=== PATIENT | female | born 1960 | race American Indian/Alaskan Native ===

== ENCOUNTER 2018-02-12 10:05 | Emergency (ER) | payer MEDICARE ==
[2018-02-12 12:16] LABS: Hematocrit 31.9 % (30.3-42.9); Hemoglobin 10.5 gm/dl (10.1-14.3); Mean Corpuscular HGB Conc 33 % (30-34); Mean Corpuscular Hemoglobin 31 pg (28-32); Mean Corpuscular Volume 93 fl (79-97); Platelet Count 153 K/mm3 (140-440); Red Blood Count 3.43 M/mm3 (3.65-5.03)
[2018-02-12 12:28] LABS: Amphetamine Screen,Urine PRESUMPTIVE NEGATIVE; Benzodiazepines Screen,Urine PRESUMPTIVE NEGATIVE; Cannabinoid Screen,Urine PRESUMPTIVE NEGATIVE; Cocaine Screen,Urine PRESUMPTIVE NEGATIVE; Methadone Screen,Urine PRESUMPTIVE NEGATIVE; Opiate Screen,Urine PRESUMPTIVE NEGATIVE
[2018-02-12 12:29] LABS: Bilirubin,Urine NEG (Negative); Blood,Urine NEG (Negative); Color,Urine Amber (Yellow); Hyaline Casts,Urine 2 /LPF; Mucus,Urine FEW /HPF
[2018-02-12 12:36] LABS: Calcium 9.4 mg/dL (8.4-10.2)
--- NOTE | 2018-02-12 12:44 | Emergency Department Report ---
ED Psych HPI - General Chief Complaint: Psych Stated Complaint: MENTAL EVAL Time Seen by Provider: 02/12/18 12:24 Source: patient Mode of arrival: Ambulatory - History of Present Illness Initial Comments: 57-year-old female with history of bipolar, schizophrenia and dementia presents to the ED due to aggressive behavior at home. This was reported by the patient' s mother was not present at bedside at this time. Patient denies aggression, also denies suicidal and homicidal ideation. Reports no hallucinations. MD Complaint: other (aggressive behavior) -: unknown Quality: intermittent Improves With: none Worsens With: none Treatments Prior to Arrival: none - Related Data Previous Rx's Medication Instructions Recorded Last Taken Type levoFLOXacin [Levaquin TAB] 500 mg PO QDAY #7 tablet 02/12/18 Unknown Rx metFORMIN [Glucophage] 500 mg PO BID #60 tablet 02/12/18 Unknown Rx Allergies Allergy/AdvReac Type Severity Reaction Status Date / Time morphine Allergy Rash Verified 01/21/18 11:25 ED Review of Systems ROS: Stated complaint: MENTAL EVAL Other details as noted in HPI Comment: All other systems reviewed and negative Psychiatric: denies: auditory hallucinations, homicidal thoughts, suicidal thoughts ED Past Medical Hx - Past Medical History Hx Psychiatric Treatment: Yes (BIPOLAR, DEMENTIA AND SCHIZOPHRENIA) - Surgical History Past Surgical History?: No - Social History Smoking Status: Never Smoker Substance Use Type: None - Medications Home Medications: Home Medications Medication Instructions Recorded Confirmed Last Taken Type levoFLOXacin [Levaquin TAB] 500 mg PO QDAY #7 tablet 02/12/18 Unknown Rx metFORMIN [Glucophage] 500 mg PO BID #60 tablet 02/12/18 Unknown Rx ED Physical Exam - General Limitations: Other General appearance: alert, in no apparent distress - Head Head exam: Present: atraumatic, normocephalic - Eye Eye exam: Present: normal appearance - ENT ENT exam: Present: mucous membranes moist - Neck Neck exam: Present: normal inspection - Respiratory Respiratory exam: Present: normal lung sounds bilaterally. Absent: respiratory distress - Cardiovascular Cardiovascular Exam: Present: normal rhythm, tachycardia - GI/Abdominal GI/Abdominal exam: Present: soft. Absent: tenderness - Extremities Exam Extremities exam: Present: normal inspection - Neurological Exam Neurological exam: Present: alert, oriented X3 - Psychiatric Psychiatric exam: Present: normal affect, normal mood - Skin Skin exam: Present: warm, dry, intact, normal color ED Course Vital Signs 02/12/18 02/12/18 02/12/18 11:26 13:41 17:15 Temperature 99.5 F 99.8 F H -99.8 F L Pulse Rate 125 H 107 H 107 H Respiratory 20 16 16 Rate Blood Pressure 119/60 Blood Pressure 111/62 111/62 [Right] O2 Sat by Pulse 95 99 99 Oximetry ED Medical Decision Making - Lab Data Result diagrams: 02/12/18 11:57 02/12/18 11:57 - Radiology Data Radiology results: pending - Medical Decision Making 57 yo female with history of dementia, bipolar, schizophrenia presents to the ED reports of aggression against family. Patient denies this and also denies hallucinations, SI, or HI. Patient tachycardic upon arrival and has white count of 16. She reports no symptoms of infection. UA negative. Chest x-ray ordered, patient stable, signed out to Dr. Quinones. - Differential Diagnosis dementia, schizophrenia, UTI, PNA Critical care attestation.: If time is entered above; I have spent that time in minutes in the direct care of this critically ill patient, excluding procedure time. ED Disposition Clinical Impression: Schizophrenia, Dementia, Pneumonia, Hyperglycemia Disposition: DC-01 TO HOME OR SELFCARE Is pt being admited?: No Condition: Stable Instructions: Schizophrenia (ED), Bacterial Pneumonia (ED) Prescriptions: levoFLOXacin [Levaquin TAB] 500 mg PO QDAY #7 tablet metFORMIN [Glucophage] 500 mg PO BID #60 tablet Referrals: PRIMARY CARE, [Primary Care Provider] - 3-5 Days
[2018-02-12 12:52] LABS: Basophils % (Manual) 0 % (0.0-1.8); Eosinophils % (Manual) 0 % (0.0-4.3); Total Cells Counted 100
[2018-02-12 12:53] LABS: Platelet Estimate Consistent w Auto
[2018-02-12 12:54] LABS: Anisocytosis 1+
[2018-02-12] MEDS ORDERED: HumuLIN R SUB-Q ONE (15:24)
[2018-02-12 15:58] VITALS: BP 111/62
[2018-02-12] MEDS ORDERED: ROCEPHIN IM ONE (19:56)
[2018-02-12] MEDS ORDERED: XYLOCAINE 1% MPF 5 mL INFILTRATI ONE (19:56)
--- NOTE | 2018-02-12 20:01 | Emergency Department Report ---
ED General Adult HPI - General Chief complaint: Psych Stated complaint: MENTAL EVAL Time Seen by Provider: 02/12/18 12:24 Source: patient Mode of arrival: Ambulatory Limitations: Other - History of Present Illness Initial comments: Patient is a 57-year-old female with history of schizophrenia, bipolar, DM and dementia. Patient presented to the ER accompanied by her mother stating that the patient is being very aggressive recently and one had to be evaluated. Patient is calm and is not aggressive in the ER. She denied any suicidal or homicidal ideation. No auditory or visual hallucination. I reviewed patient chart and showed that patient is with low-grade fever and slightly tachycardic when she came in. Patient chest x-ray showed a left lobe pneumonia with a white count of 16,000. I give patient Rocephin IM. Patient is being waiting for assessment by [facility]. Severity scale (0 -10): 0 - Related Data Allergies Allergy/AdvReac Type Severity Reaction Status Date / Time morphine Allergy Rash Verified 01/21/18 11:25 ED Review of Systems ROS: Stated complaint: MENTAL EVAL Other details as noted in HPI Comment: All other systems reviewed and negative Constitutional: denies: chills Respiratory: denies: cough, orthopnea, shortness of breath, SOB with exertion, SOB at rest Cardiovascular: palpitations. denies: chest pain Gastrointestinal: denies: abdominal pain, nausea, vomiting, diarrhea, constipation, hematemesis, hematochezia Neurological: denies: headache, weakness Psychiatric: denies: auditory hallucinations, homicidal thoughts, suicidal thoughts ED Past Medical Hx - Past Medical History Hx Psychiatric Treatment: Yes (BIPOLAR, DEMENTIA AND SCHIZOPHRENIA) - Surgical History Past Surgical History?: No - Social History Smoking Status: Never Smoker Substance Use Type: None ED Physical Exam - General Limitations: Other General appearance: alert, in no apparent distress - Head Head exam: Present: atraumatic, normocephalic, normal inspection - Eye Eye exam: Present: normal appearance - ENT ENT exam: Present: normal exam, normal orophraynx, mucous membranes moist - Neck Neck exam: Present: normal inspection, full ROM. Absent: tenderness, meningismus, lymphadenopathy, thyromegaly - Respiratory Respiratory exam: Present: normal lung sounds bilaterally. Absent: respiratory distress, wheezes, rales, rhonchi, stridor, accessory muscle use, decreased breath sounds, prolonged expiratory - Cardiovascular Cardiovascular Exam: Present: regular rate, normal rhythm, normal heart sounds - GI/Abdominal GI/Abdominal exam: Present: soft, normal bowel sounds. Absent: distended, tenderness, guarding, rebound, rigid, organomegaly, mass, bruit, pulsatile mass , hernia - Extremities Exam Extremities exam: Present: normal inspection, full ROM, normal capillary refill. Absent: pedal edema, calf tenderness - Back Exam Back exam: Present: normal inspection, full ROM - Neurological Exam Neurological exam: Present: alert, oriented X3, CN II-XII intact, normal gait, reflexes normal - Psychiatric Psychiatric exam: Absent: depressed, agitated, manic, homicidal ideation, suicidal ideation - Skin Skin exam: Present: warm, intact, normal color ED Course Vital Signs 02/12/18 02/12/18 02/12/18 11:26 13:41 17:15 Temperature 99.5 F 99.8 F H -99.8 F L Pulse Rate 125 H 107 H 107 H Respiratory 20 16 16 Rate Blood Pressure 119/60 Blood Pressure 111/62 111/62 [Right] O2 Sat by Pulse 95 99 99 Oximetry ED Medical Decision Making - Lab Data Result diagrams: 02/12/18 11:57 02/12/18 11:57 - Radiology Data Radiology results: report reviewed Chest x-ray showed left midlung opacity compatible with his focal pneumonia. Mass cannot be excluded. Patient is to follow-up with her primary care physician for resolution of the opacity. - Medical Decision Making Vladislav is a 57-year-old female with history of schizophrenia, bipolar, DM and dementia. Patient presented to the ER accompanied by her mother stating that the patient is being very aggressive recently and one had to be evaluated. Patient is calm and is not aggressive in the ER. She denied any suicidal or homicidal ideation. No auditory or visual hallucination. I reviewed patient chart and showed that patient is with low-grade fever and slightly tachycardic when she came in. Patient chest x-ray showed a left lobe pneumonia with a white count of 16,000. I give patient Rocephin IM. Patient is being waiting for assessment by mental health. Patient assessed by mental health and as stated patient can be referred to outpatient. Patient clinically looks okay with no acute distress patient is walking around with an oxygen saturation of 100%. I believe patient can be treated as an outpatient for pneumonia and to follow-up with her primary care physician in the next 2-3 days. I also informed the family about the x-ray finding and the need for follow-up primary care physician for another x-ray for resolution of the opacity and to make sure that the patient does not have lung cancer. Family agreed on the plan. Critical care attestation.: If time is entered above; I have spent that time in minutes in the direct care of this critically ill patient, excluding procedure time. ED Disposition Clinical Impression: Schizophrenia, Dementia, Pneumonia, Hyperglycemia Disposition: DC-01 TO HOME OR SELFCARE Is pt being admited?: No Condition: Stable Instructions: Bacterial Pneumonia (ED), Schizophrenia (ED) Referrals: PRIMARY CARE, [Primary Care Provider] - 3-5 Days
--- NOTE | 2018-02-13 10:27 | XRay Report ---
FINAL REPORT PROCEDURE: XRAY CHEST 2 VIEWS TECHNIQUE: PA and lateral chest radiographs were obtained. CPT 46928 HISTORY: HIGH WBC COMPARISON: No prior studies are available for comparison. FINDINGS: Heart: Normal. Mediastinum/Vessels: Normal. Lungs/Pleural space: There is focal somewhat rounded airspace opacity in the left midlung, measuring approximately 6 centimeters, compatible with a focal pneumonia. Cannot exclude underlying mass. No effusion or pneumothorax. Bony thorax: No acute osseous abnormality. Other: IMPRESSION: There is focal somewhat rounded airspace opacity in the left midlung, measuring approximately 6 centimeters, compatible with a focal pneumonia. Cannot exclude underlying mass. Recommend radiographic follow-up to resolution.
== END 2018-02-12 20:45 | disposition home or self-care (01) ==
LOC: ED 10:05
DX: F03.90 Unspecified dementia, unspecified severity, without behavioral disturbance, psychotic disturbance, mood disturbance, and anxiety (principal); F20.9 Schizophrenia, unspecified; J18.9 Pneumonia, unspecified organism; R73.9 Hyperglycemia, unspecified; F31.9 Bipolar disorder, unspecified; Z88.5 Allergy status to narcotic agent
CPT/HCPCS: 36415; 71046; 80048; 80307; 81001; 82962; 85007; 85025; 96372; 99284; G0480; J0696; 80320; J1815

== ENCOUNTER 2018-12-13 14:42 | Emergency (ER) | payer MEDICARE ==
--- NOTE | 2018-12-13 15:08 | Event Note ---
ED Screening Note Date of service: 12/13/18 Time: 15:04 ED Screening Note: This is a 58 y.o. F. that presents to the ER with AMS for several days. PMH dementia, DM2, HTN, and schizophrenia. This initial assessment/diagnostic orders/clinical plan/treatment(s) is/are subject to change based on patients health status, clinical progression and re- assessment by fellow clinical providers in the ED. Further treatment and workup at subsequent clinical providers discretion. Patient/guardian urged not to elope from the ED as their condition may be serious if not clinically assessed and managed. Initial orders include: Labs Main ED
[2018-12-13 15:23] LABS: Basophils % (Auto) 0.4 % (0.0-1.8); Eosinophils % (Auto) 0.5 % (0.0-4.3); Hematocrit 36.3 % (30.3-42.9); Hemoglobin 12.3 gm/dl (10.1-14.3); Lymphocytes # (Auto) 1.7 K/mm3 (1.2-5.4); Lymphocytes % (Auto) 26.6 % (13.4-35.0); Mean Corpuscular HGB Conc 34 % (30-34); Mean Corpuscular Volume 91 fl (79-97); Monocytes # (Auto) 0.4 K/mm3 (0.0-0.8); Monocytes % (Auto) 6.4 % (0.0-7.3); Platelet Count 240 K/mm3 (140-440); Red Cell Distribution Width 13.4 % (13.2-15.2)
--- NOTE | 2018-12-13 16:43 | Emergency Department Report ---
ED Altered Mental Status HPI - General Chief Complaint: Altered Mental Status Stated Complaint: CONFUSED/SKIN COLORED DARKENED/NOT EATING Time Seen by Provider: 12/13/18 15:04 Source: family Mode of arrival: Wheelchair Limitations: Altered Mental Status - History of Present Illness Initial Comments: 58-year-old female with history of dementia, schizophrenia, diabetes brought to ED by her mother for change in behavior over the last week. Mother states patient has had decreased appetite, and has been keeping to herself in her room, smoking more cigarettes than usual. Mother states patient will say things such as, "I'm watching TV", "I'm not hungry right now, I'll eat later" when she attempts to get her to leave her room. Patient states "I don't know" when asked why she hasn't been eating. Mother also states patient's face seems darker in color. Patient denies headache, chest pain, shortness of breath, fever, abdominal pain, vomiting, diarrhea. Patient also denies feeling sad or depressed, hallucinations, suicidal or homicidal ideations. Mother states home, patient does seem to understand what she is saying when she tells the patient to do something. Currently, during questioning, patient responds appropriately. Mother states this is better than she has been at home. MD Complaint: altered mental status -: week(s) (1) Severity: moderate Consistency of Symptoms: constant Context: unknown Associated Symptoms: denies: chest pain, cough, fever/chills, headaches, nausea/vomiting, shortness of breath - Related Data Previous Rx's Medication Instructions Recorded Last Taken Type levoFLOXacin [Levaquin TAB] 500 mg PO QDAY #7 tablet 02/12/18 Unknown Rx metFORMIN [Glucophage] 500 mg PO BID #60 tablet 02/12/18 Unknown Rx Nitrofurantoin Barnes/M-Cryst 100 mg PO Q12HR #14 capsule 12/13/18 Unknown Rx [Macrobid CAP] Allergies Allergy/AdvReac Type Severity Reaction Status Date / Time morphine Allergy Rash Verified 01/21/18 11:25 ED Review of Systems ROS: Stated complaint: CONFUSED/SKIN COLORED DARKENED/NOT EATING Other details as noted in HPI Comment: All other systems reviewed and negative Constitutional: denies: chills, fever Respiratory: denies: cough, shortness of breath Cardiovascular: denies: chest pain Gastrointestinal: denies: abdominal pain, nausea, vomiting, diarrhea Genitourinary: denies: dysuria Skin: change in color Neurological: denies: headache Psychiatric: denies: depression, auditory hallucinations, visual hallucinations, homicidal thoughts, suicidal thoughts ED Past Medical Hx - Past Medical History Previous Medical History?: Yes Hx Diabetes: Yes Hx Psychiatric Treatment: Yes (BIPOLAR, DEMENTIA AND SCHIZOPHRENIA) Hx Dementia: Yes - Social History Smoking Status: Never Smoker Substance Use Type: None - Medications Home Medications: Home Medications Medication Instructions Recorded Confirmed Last Taken Type levoFLOXacin [Levaquin TAB] 500 mg PO QDAY #7 tablet 02/12/18 Unknown Rx metFORMIN [Glucophage] 500 mg PO BID #60 tablet 02/12/18 Unknown Rx Nitrofurantoin Barnes/M-Cryst 100 mg PO Q12HR #14 capsule 12/13/18 Unknown Rx [Macrobid CAP] ED Physical Exam - General Limitations: Altered Mental Status General appearance: alert, in no apparent distress - Head Head exam: Present: atraumatic, normocephalic - Eye Eye exam: Present: normal appearance, PERRL, EOMI - ENT ENT exam: Present: mucous membranes moist - Neck Neck exam: Present: normal inspection - Respiratory Respiratory exam: Present: normal lung sounds bilaterally. Absent: respiratory distress - Cardiovascular Cardiovascular Exam: Present: regular rate, normal rhythm - GI/Abdominal GI/Abdominal exam: Present: soft. Absent: distended, tenderness - Extremities Exam Extremities exam: Present: normal inspection - Neurological Exam Neurological exam: Present: alert, oriented X3, CN II-XII intact. Absent: motor sensory deficit - Psychiatric Psychiatric exam: Present: normal affect, normal mood - Skin Skin exam: Present: warm, dry, intact, normal color ED Course Vital Signs 12/13/18 12/13/18 12/13/18 17:10 17:57 18:17 Temperature 98.9 F 98.5 F Pulse Rate 87 72 Respiratory 18 18 Rate Blood Pressure 132/69 Blood Pressure 113/65 121/76 [Right] O2 Sat by Pulse 100 100 Oximetry 12/13/18 19:43 Temperature Pulse Rate 81 Respiratory 18 Rate Blood Pressure Blood Pressure 116/66 [Right] O2 Sat by Pulse 99 Oximetry - Lab Data Result diagrams: 12/13/18 15:10 12/13/18 15:10 Lab Results 12/13/18 12/13/18 12/13/18 Range/Units 15:10 15:10 16:58 WBC 6.5 (4.5-11.0) K/mm3 RBC 4.00 (3.65-5.03) M/mm3 Hgb 12.3 (10.1-14.3) gm/dl Hct 36.3 (30.3-42.9) % MCV 91 (79-97) fl MCH 31 (28-32) pg MCHC 34 (30-34) % RDW 13.4 (13.2-15.2) % Plt Count 240 (140-440) K/mm3 Lymph % (Auto) 26.6 (13.4-35.0) % Barnes % (Auto) 6.4 (0.0-7.3) % Eos % (Auto) 0.5 (0.0-4.3) % Baso % (Auto) 0.4 (0.0-1.8) % Lymph # 1.7 (1.2-5.4) K/mm3 Barnes # 0.4 (0.0-0.8) K/mm3 Eos # 0.0 (0.0-0.4) K/mm3 Baso # 0.0 (0.0-0.1) K/mm3 Seg Neutrophils % 66.1 (40.0-70.0) % Seg Neutrophils # 4.3 (1.8-7.7) K/mm3 Sodium 143 (137-145) mmol/L Potassium 4.4 (3.6-5.0) mmol/L Chloride 110.2 H (98-107) mmol/L Carbon Dioxide 18 L (22-30) mmol/L Anion Gap 19 mmol/L BUN 22 H (7-17) mg/dL Creatinine 1.2 (0.7-1.2) mg/dL Estimated GFR 56 ml/min BUN/Creatinine Ratio 18 % Glucose 194 H (65-100) mg/dL Calcium 10.0 (8.4-10.2) mg/dL Urine Color Mary Beth (Yellow) Urine Turbidity Cloudy (Clear) Urine pH 5.0 (5.0-7.0) Ur Specific [place] 1.024 (1.003-1.030) Urine Protein >500 (Negative) mg/dL Urine Glucose (UA) 50 (Negative) mg/dL Urine Ketones Tr (Negative) mg/dL Urine Blood Neg (Negative) Urine Nitrite Neg (Negative) Urine Bilirubin Neg (Negative) Urine Urobilinogen < 2.0 (<2.0) mg/dL Ur Leukocyte Esterase Lg (Negative) Urine WBC (Auto) 41.0 H (0.0-6.0) /HPF Urine RBC (Auto) 5.0 (0.0-6.0) /HPF U Epithel Cells (Auto) 18.0 H (0-13.0) /HPF Urine Bacteria (Auto) 1+ (Negative) /HPF Hyaline Casts 6 /LPF Urine Mucus 1+ /HPF Urine Yeast (Budding) 1+ /HPF - EKG Data -: EKG Interpreted by De EKG shows normal: sinus rhythm, axis, intervals, QRS complexes, ST-T waves Rate: normal Interpretation: no acute changes - Radiology Data Radiology results: report reviewed, image reviewed - Medical Decision Making - vitals are normal - pt not altered during exam - workup unremarkable, mild UTI on UA, IV fluids given - CT Head negative - behavior possibly due to her dementia or schizophrenia; denies SI, HI, halluicnations - rx given for UTI - outpt f/u advised - return precautions given - Differential Diagnosis infection, electrolyte abnormality, intracranial abnormality, dementia Critical care attestation.: If time is entered above; I have spent that time in minutes in the direct care of this critically ill patient, excluding procedure time. ED Disposition Clinical Impression: UTI (urinary tract infection) Disposition: TO HOME OR SELFCARE Is pt being admited?: No Condition: Stable Instructions: Urinary Tract Infection in Women (ED) Prescriptions: Nitrofurantoin Barnes/M-Cryst [Macrobid CAP] 100 mg PO Q12HR #14 capsule Referrals: PRIMARY CAREMD [Referring] - 3-[address] [facility] [Provider Group] - 3-5 Days MARKO FERRARI MD [Staff Physician] - 3-5 Days Time of Disposition: 19:28
[2018-12-13 17:11] LABS: Bacteria,Urine 1+ /HPF (Negative); Bilirubin,Urine NEG (Negative); Blood,Urine NEG (Negative); Color,Urine Amber (Yellow); Hyaline Casts,Urine 6 /LPF; Mucus,Urine 1+ /HPF; Protein,Urine >500 mg/dL (Negative); Urobilinogen,Urine < 2.0 mg/dL (<2.0)
--- NOTE | 2018-12-13 17:11 | XRay Report ---
CHEST 1 VIEW INDICATION / CLINICAL INFORMATION: ams. COMPARISON: 02/12/2018 FINDINGS: SUPPORT DEVICES: None. HEART / MEDIASTINUM: No significant abnormality. LUNGS / PLEURA: No significant pulmonary or pleural abnormality. No pneumothorax. ADDITIONAL FINDINGS: No significant additional findings. IMPRESSION: No acute pulmonary or pleural abnormality. Signer Name: Chandan Hinson MD FACR Signed: 12/13/2018 5:07 PM Workstation Name: [id number]
--- NOTE | 2018-12-13 18:13 | Cat Scan Report ---
CT BRAIN: 12/13/2018 INDICATION / CLINICAL INFORMATION: ams. COMPARISON: None available. FINDINGS: BRAIN/INTRACRANIAL STRUCTURES: Unenhanced CT images of the brain dated straight no evidence of acute intracranial abnormality. Ventricles and sulci are prominent in size, consistent with diffuse cerebral atrophy. There is no CT evidence of acute ischemic injury, hemorrhage, or mass. There are no abnormal extra-ax ial fluid collections. Atherosclerotic vascular calcifications are present in the distal internal carotid arteries and verte bral arteries. EXTRACRANIAL STRUCTURES: Unremarkable. IMPRESSION: No acute abnormality. All CT scans at this location are performed using dose reduction to ALARA by means of automated expos ure control. Signer Name: Dong Ly MD Signed: 12/13/2018 6:08 PM Workstation Name: [id number]
[2018-12-13] MEDS ORDERED: NACL 0.9% 1000 ML 1,000 ML IV ONE (18:31)
[2018-12-13 19:44] VITALS: BP 116/66
== END 2018-12-13 19:43 | disposition home or self-care (01) ==
LOC: ED 14:42
DX: N39.0 Urinary tract infection, site not specified (principal); F31.9 Bipolar disorder, unspecified; R51 Headache; F17.200 Nicotine dependence, unspecified, uncomplicated; F20.9 Schizophrenia, unspecified; E11.9 Type 2 diabetes mellitus without complications; Z79.84 Long term (current) use of oral hypoglycemic drugs; Z88.5 Allergy status to narcotic agent
CPT/HCPCS: 36415; 70450; 71045; 80048; 81001; 85025; 87086; 93005; 93010; 99285

== ENCOUNTER 2019-04-20 20:34 | Emergency (ER) | payer MEDICARE ==
[2019-04-20 22:15] LABS: Basophils % (Auto) 0.6 % (0.0-1.8); Eosinophils # (Auto) 0.1 K/mm3 (0.0-0.4); Eosinophils % (Auto) 1.3 % (0.0-4.3); Hematocrit 36.3 % (30.3-42.9); Hemoglobin 12.1 gm/dl (10.1-14.3); Lymphocytes # (Auto) 3.3 K/mm3 (1.2-5.4); Lymphocytes % (Auto) 38.5 % (13.4-35.0); Mean Corpuscular HGB Conc 33 % (30-34); Mean Corpuscular Volume 91 fl (79-97); Monocytes # (Auto) 0.6 K/mm3 (0.0-0.8); Monocytes % (Auto) 6.6 % (0.0-7.3); Platelet Count 279 K/mm3 (140-440); Red Blood Count 3.99 M/mm3 (3.65-5.03)
[2019-04-20 22:35] LABS: Calcium 10.3 mg/dL (8.4-10.2)
[2019-04-20] MEDS ORDERED: SODIUM CHLORIDE 0.9% 1000 ML 1,000 ML IV ONE (23:39)
--- NOTE | 2019-04-20 23:45 | Emergency Department Report ---
<MELINA PAINTER - Last Filed: 04/21/19 14:29> ED Psych HPI - General Chief Complaint: Altered Mental Status Stated Complaint: MH EVAL Time Seen by Provider: 04/20/19 23:31 - Related Data Previous Rx's Medication Instructions Recorded Last Taken Type levoFLOXacin [Levaquin TAB] 500 mg PO QDAY #7 tablet 02/12/18 Unknown Rx metFORMIN [Glucophage] 500 mg PO BID #60 tablet 02/12/18 Unknown Rx Nitrofurantoin [place]/M-Cryst 100 mg PO Q12HR #14 capsule 12/13/18 Unknown Rx [Macrobid CAP] Allergies Allergy/AdvReac Type Severity Reaction Status Date / Time morphine Allergy Rash Verified 01/21/18 11:25 ED Past Medical Hx - Medications Home Medications: Home Medications Medication Instructions Recorded Confirmed Last Taken Type levoFLOXacin [Levaquin TAB] 500 mg PO QDAY #7 tablet 02/12/18 Unknown Rx metFORMIN [Glucophage] 500 mg PO BID #60 tablet 02/12/18 Unknown Rx Nitrofurantoin [place]/M-Cryst 100 mg PO Q12HR #14 capsule 12/13/18 Unknown Rx [Macrobid CAP] ED Course - Reevaluation(s) Reevaluation #1: 04/21/19 14:29 Patient has been accepted to our [facility] psych unit at this time. ED Medical Decision Making - Lab Data Result diagrams: 04/20/19 21:33 04/20/19 21:33 ED Disposition Clinical Impression: Acute psychosis, Dehydration Disposition: DC-01 TO HOME OR SELFCARE Is pt being admited?: No Does the pt Need Aspirin: No Condition: Stable Time of Disposition: 14:30 <REGLA NIX - Last Filed: 04/21/19 19:27> ED Psych HPI - General Source: patient Mode of arrival: Ambulatory - History of Present Illness Initial Comments: Patient is 58 years old female with history of schizophrenia, dementia and diabetes. Patient brought to the emergency room by her mother for evaluation of altered mental status. Mother stated that for the last 3 weeks patient is more anxious and refusing to talk to people and refusing to eat also. She stated that she is talking to herself more and sound like she is responding to internal stimuli. Patient is alert and oriented in no acute distress. Patient denied any suicidal or homicidal ideation. She denied visual or auditory hallucination. MD Complaint: altered mental status -: days(s) Associated Psychiatric Symptoms: racing thoughts, auditory hallucinations History of same: Yes Quality: constant Improves With: none Worsens With: none Context: not taking psychiatric Associated Symptoms: denies other symptoms ED Review of Systems ROS: Stated complaint: MH EVAL Other details as noted in HPI Comment: All other systems reviewed and negative Constitutional: denies: chills, fever Respiratory: denies: cough, shortness of breath, SOB with exertion, SOB at rest, wheezing Cardiovascular: denies: chest pain, palpitations Gastrointestinal: denies: abdominal pain, nausea Musculoskeletal: denies: back pain Neurological: denies: headache, weakness, numbness, paresthesias, confusion, abnormal gait ED Past Medical Hx - Past Medical History Previous Medical History?: Yes Hx Diabetes: Yes Hx Psychiatric Treatment: Yes (BIPOLAR, DEMENTIA AND SCHIZOPHRENIA) Hx Dementia: Yes - Surgical History Past Surgical History?: No - Social History Smoking Status: Never Smoker Substance Use Type: None ED Physical Exam - General Limitations: No Limitations General appearance: alert, in no apparent distress, anxious - Head Head exam: Present: atraumatic, normocephalic, normal inspection - Eye Eye exam: Present: normal appearance - ENT ENT exam: Present: mucous membranes dry - Neck Neck exam: Present: normal inspection, full ROM. Absent: tenderness, meningismus, lymphadenopathy, thyromegaly - Respiratory Respiratory exam: Present: normal lung sounds bilaterally - Cardiovascular Cardiovascular Exam: Present: regular rate, normal rhythm, normal heart sounds - GI/Abdominal GI/Abdominal exam: Present: soft, normal bowel sounds. Absent: distended, tenderness, guarding, rebound, rigid, organomegaly, mass, bruit, pulsatile mass, hernia - Extremities Exam Extremities exam: Present: normal inspection, full ROM, normal capillary refill - Back Exam Back exam: Present: normal inspection, full ROM. Absent: CVA tenderness (R), C VA tenderness (L) - Neurological Exam Neurological exam: Present: alert, oriented X3, CN II-XII intact - Psychiatric Psychiatric exam: Present: anxious. Absent: depressed, agitated, manic, homicidal ideation, suicidal ideation - Skin Skin exam: Present: warm, intact, normal color ED Course Vital Signs 04/20/19 04/20/19 04/20/19 20:40 21:13 23:45 Temperature 98.8 F 98.8 F Pulse Rate 80 83 68 Respiratory 18 18 16 Rate Blood Pressure 148/75 148/75 Blood Pressure [Left] O2 Sat by Pulse 98 100 98 Oximetry 04/21/19 04/21/19 04/21/19 04:14 07:30 13:35 Temperature 99.1 F Pulse Rate 70 84 94 H Respiratory 16 20 20 Rate Blood Pressure Blood Pressure 157/76 155/66 127/54 [Left] O2 Sat by Pulse 98 99 98 Oximetry ED Medical Decision Making - Lab Data Result diagrams: 04/20/19 21:33 04/20/19 21:33 Critical care attestation.: If time is entered above; I have spent that time in minutes in the direct care of this critically ill patient, excluding procedure time.
[2019-04-21] MEDS ORDERED: SODIUM CHLORIDE 0.9% 1000 ML 1,000 ML ONE (04:08)
[2019-04-21 07:35] LABS: Bilirubin,Urine NEG (Negative); Blood,Urine NEG (Negative); Color,Urine Yellow (Yellow); Mucus,Urine FEW /HPF; Protein,Urine <15 mg/dL mg/dL (Negative); Urobilinogen,Urine < 2.0 mg/dL (<2.0)
[2019-04-21 07:46] LABS: Amphetamine Screen,Urine PRESUMPTIVE NEGATIVE; Benzodiazepines Screen,Urine PRESUMPTIVE NEGATIVE; Cannabinoid Screen,Urine PRESUMPTIVE NEGATIVE; Cocaine Screen,Urine PRESUMPTIVE NEGATIVE; Methadone Screen,Urine PRESUMPTIVE NEGATIVE; Opiate Screen,Urine PRESUMPTIVE NEGATIVE
[2019-04-21 13:35] VITALS: BP 127/54
== END 2019-04-21 15:51 | disposition home or self-care (01) ==
LOC: ED 20:34
DX: E86.0 Dehydration (principal); F23 Brief psychotic disorder; E11.9 Type 2 diabetes mellitus without complications; F03.90 Unspecified dementia, unspecified severity, without behavioral disturbance, psychotic disturbance, mood disturbance, and anxiety; F31.9 Bipolar disorder, unspecified; F20.9 Schizophrenia, unspecified
CPT/HCPCS: 36415; 80048; 80307; 81001; 82962; 85025; 96360; 96361; 99284; J7030; 80320; G0480

== ENCOUNTER 2019-04-21 14:33 | Inpatient (IN) | payer MEDICARE ==
[2019-04-21] MEDS ORDERED: ZIPRASIDONE MESYLATE 20 MG VIAL IM PRN (15:36)
--- NOTE | 2019-04-21 15:40 | History and Physical Report ---
<ASHIA CÁRDENAS - Last Filed: 04/21/19 16:45> GP History & Physical - History of Present Illness Date of admission: 04/21/19 Date of Examination: 04/21/19 Reason for Admission: Danger to self Chief Complaint: Disorientation and jerking movement History of Present Illness: Yesenia Suazo is a 58y/o black female who was stated to had been brought to the ER by her mother. The patient was said to have jerking like behavior and psychosis. In my interview with the patient she was dressed appropriately. Somewhat neat. She is pleasant, and cooperative. She was unable to tell me why she was brought to the hospital, stating "she couldn't go home." She has involuntary movement of her head, tongue, neck and upper extremities. She is confused and a poor historian. When asked about mood, Mrs. Suazo stated "feel fine." She denies hallucinations of any kind. When asked about suicidal thoughts or self harm, she replied "uh-uh." PAST PSYCHIATRIC HISTORY: Diagnoses: Schizophrenia Suicide attempts or Self-harm behavior: Denies Prior psychiatric hospitalizations: unable to obtain Substance Abuse history: Alcohol Tobacco 1pk per day PAST MEDICAL /SURGICAL HISTORY: DM Allergies: Morphine FAMILY PSYCHIATRY HISTORY: None reported or documented SOCIAL HISTORY: Single Disabled Lives with mother who is said to be POA Access to guns/weapons: NO Education: unable to assess History of Abuse: unable to asses REVIEW OF SYSTEMS Constitutional: Negative for weight loss ENT: Negative for stridor Respiratory: Negative for cough or hemoptysis All other systems reviewed and are negative Legal Status: Involuntary Current Active Problems MSE Appearance: Wearing appropriate clothing. Involuntary movements noted Behavior: Pleasant, calm and cooperative. Mood: "Feels fine" Affect: Congruent with stated mood Thought Process: Unable to assess Speech: Normal rate. Thought Content Harmfulness Denies SI/HI Hallucinations: patient denies Delusions: none elicited Consciousness: alert Cognition/Memory: Confused Insight/Judgment: Limited. Assessment: Schizophrenia, Bipolar, EPS Treatment Plan Patient will be admitted for inpatient psychiatric evaluation, medication adjustment and close monitoring The patient's behavior, mood, sleep and appetite will be closely monitored. Patient will be enrolled in individual and group therapeutic sessions and encouraged to attend. Patient will be provided with a safe and structured environment. Patient's physical health needs will be addressed by the Hospitalist. Hospitalist Consulted Labs including CBC, CMP, Lipid profile and Hemoglobin A1C ordered Social Assessment will be completed and the Md Senior Research Scientist will work with patient and family to ensure a suitable and safe disposition Medication adjustment will be made as clinically indicated Usual Wellness Sikh/Preservation: - Start Trazodone 50 mg po QHS - Start Geodon 10mg IM q 4 hours PRN agitation - Start Cogentin 0.5mg po BID - Start Risperidone 0.5mg po BID - Start Nicotine patch 21mg daily Reaction to Hospitalization: Accepting Legal Status: Voluntary, Involuntary Reaction to Hospitalization: Accepting Medications and Allergies Allergies Allergy/AdvReac Type Severity Reaction Status Date / Time morphine Allergy Rash Verified 01/21/18 11:25 Home Medications Medication Instructions Recorded Confirmed Last Taken Type levoFLOXacin [Levaquin TAB] 500 mg PO QDAY #7 tablet 02/12/18 Unknown Rx metFORMIN [Glucophage] 500 mg PO BID #60 tablet 02/12/18 Unknown Rx Nitrofurantoin [place]/M-Cryst 100 mg PO Q12HR #14 capsule 12/13/18 Unknown Rx [Macrobid CAP] Active Meds: Active Medications Trazodone HCl (Desyrel) 50 mg PO QHS [facility] Ziprasidone (Geodon) 10 mg IM Q4H PRN PRN Reason: Agitation Physician Certification - Certification Statement Physician Certification Statement: This is an acknowledgement statement that YESENIA SUAZO is a 58 year old F who requires inpatient psychiatric admission for treatment which could reasonably be expected to improve the patient's condition for Estimated period of time patient will need to remain in the hospital: [ ] Plan for post-hospital care: [ ] <BERTO WEBSTER - Last Filed: 04/21/19 19:16> Medications and Allergies Active Meds: Active Medications Benztropine Mesylate (Cogentin) 0.5 mg PO BID [facility] Nicotine (Habitrol) 21 mg TD QDAY [facility] Risperidone (Risperdal) 1 mg PO BID [facility] Trazodone HCl (Desyrel) 50 mg PO QHS [facility] Ziprasidone (Geodon) 10 mg IM Q4H PRN PRN Reason: Agitation Results - Results Labs/Vitals: Last Vital Signs Temp 98 F 04/21/19 16:30 Pulse 80 04/21/19 16:30 Resp 20 04/21/19 16:30 BP 130/76 04/21/19 16:30 Pulse Ox 99 04/21/19 16:30 Physical Examination - Constitutional Vitals: Vital Signs Temp Pulse Resp BP Pulse Ox 98 F 80 20 130/76 99 04/21/19 16:30 04/21/19 16:30 04/21/19 16:30 04/21/19 16:30 04/21/19 16:30 Temperature -Last 24 Hours Temperature 98 F Mental Status Exam - Vital signs Last Vital Signs Temp 98 F 04/21/19 16:30 Pulse 80 04/21/19 16:30 Resp 20 04/21/19 16:30 BP 130/76 04/21/19 16:30 Pulse Ox 99 04/21/19 16:30 Physician Certification - Certification Statement Physician Certification Statement: This is an acknowledgement statement that YESENIA SUAZO is a 58 year old F who requires inpatient psychiatric admission for treatment which could reasonably be expected to improve the patient's condition for Schizophrenia Estimated period of time patient will need to remain in the hospital: 7 days Plan for post-hospital care: Outpatient care
[2019-04-21] MEDS ORDERED: NICOTINE 21 MG/24 HR PATCH TD ONE (17:00)
[2019-04-21 19:48] LABS: Basophils % (Auto) 0.7 % (0.0-1.8); Eosinophils # (Auto) 0.1 K/mm3 (0.0-0.4); Eosinophils % (Auto) 1.4 % (0.0-4.3); Hematocrit 35.3 % (30.3-42.9); Hemoglobin 11.6 gm/dl (10.1-14.3); Lymphocytes # (Auto) 2.6 K/mm3 (1.2-5.4); Lymphocytes % (Auto) 41.3 % (13.4-35.0); Mean Corpuscular HGB Conc 33 % (30-34); Mean Corpuscular Volume 91 fl (79-97); Monocytes # (Auto) 0.5 K/mm3 (0.0-0.8); Monocytes % (Auto) 7.2 % (0.0-7.3); Platelet Count 246 K/mm3 (140-440); Red Blood Count 3.89 M/mm3 (3.65-5.03); Red Cell Distribution Width 12.9 % (13.2-15.2)
[2019-04-21 20:04] LABS: Alanine Aminotransferase 14 units/L (7-56); Albumin 4.2 g/dL (3.9-5); BUN/Creatinine Ratio 29; Blood Urea Nitrogen 29 mg/dL (7-17); Calcium 9.8 mg/dL (8.4-10.2); Chol/HDL Ratio 5.43 %; HDL Cholesterol 44 mg/dL (40-59); Hemolysis Index 10; LDL Cholesterol,Direct 171 mg/dL (50-130)
[2019-04-21] MEDS: traZODone 50 MG TAB PO SCH (21:23)
[2019-04-21] MEDS: BENZTROPINE 0.5 MG TAB PO SCH (21:23)
[2019-04-21] MEDS: risperiDONE 1 MG TAB PO SCH (21:23)
[2019-04-21] MEDS ORDERED: risperiDONE 0.25 MG TAB PO SCH (22:00)
--- NOTE | 2019-04-22 08:00 | Progress Note ---
Subjective Date of service: 04/22/19 Principal diagnosis: Dementia W/Behavioral Disturbances Subjective Comment: Medical records reviewed and patient's progress was discussed with unit staff. Patient rested well until around 0330. She then awakened and became restless. She would "jump-up" out of bed, per tech. She would try to tear mattress tags off and play with different things in her room. With redirection she would get into bed and rest a while longer but do the same again. Her total amount of consistent sleep was 5 hours. In my interview with the patient this morning, the patient is up and walking out of room with staff. The patient is still having the involuntary movements of upper body. She is oriented x 1. She says she slept good and has a good appetite. Mrs. Loomis denies SI/HI, or any hallucinations. She says her appetite is good. Review of Symptoms: Constitutional: Negative for weight loss ENT: Negative for stridor Respiratory: Negative for cough or hemoptysis All other systems reviewed and are negative MSE Appearance: Wearing appropriate clothing. Behavior: Cooperative, involuntary movements Mood: good Affect: Congruent with stated mood Thought Process: Goal directed Speech: Normal rate. Thought Content Harmfulness Denies SI/HI Hallucinations: patient denies Delusions: none elicited Consciousness: alert Cognition/Memory: poor Insight/Judgment: poor Treatment Plan Due to the psychiatric conditions and treatment listed in the Assessment and Plan - the patient requires continued hospitalization. Will continue inpatient treatment to allow for medication adjustment and monitoring. Will continue q15 min safety checks. Will encourage the use of environmental modifications and non-pharmacologic approaches for the management of behavioral and psychological symptoms. Medication adjustment made today: Will adjust medications to day. See orders. Will continue current psych medications Monitor for medication side effects. The patient will continue on medications for physical illnesses, and Hospitalist will closely monitor these Continue intensive physical and occupational therapies. Monitor patient's mood, sleep, appetite, and behavior closely. Encourage patient to participate in individual and group therapeutic sessions on the park. Will provide a safe and therapeutic environment for patient. Estimated length of stay 3 days Assessment and Plan - Patient Problems (1) Dementia W/Behavioral Disturbances Current Visit: Yes Status: Acute Medications and Allergies Allergies Allergy/AdvReac Type Severity Reaction Status Date / Time morphine Allergy Rash Verified 01/21/18 11:25 Home Medications Medication Instructions Recorded Confirmed Last Taken Type levoFLOXacin [Levaquin TAB] 500 mg PO QDAY #7 tablet 02/12/18 04/22/19 Unknown Rx metFORMIN [Glucophage] 500 mg PO BID #60 tablet 02/12/18 04/22/19 Unknown Rx Nitrofurantoin [place]/M-Cryst 100 mg PO Q12HR #14 capsule 12/13/18 04/22/19 Unknown Rx [Macrobid CAP] Active Meds: Active Medications Benztropine Mesylate (Cogentin) 0.5 mg PO BID [facility] Last Admin: 04/21/19 21:23 Dose: 0.5 mg Documented by: Nicotine (Habitrol) 21 mg TD QDAY [facility] Risperidone (Risperdal) 1 mg PO BID [facility] Last Admin: 04/21/19 21:23 Dose: 1 mg Documented by: Trazodone HCl (Desyrel) 50 mg PO QHS [facility] Last Admin: 04/21/19 21:23 Dose: 50 mg Documented by: Ziprasidone (Geodon) 10 mg IM Q4H PRN PRN Reason: Agitation Results - Results Labs/Vitals: Laboratory Last Values WBC 6.4 K/mm3 (4.5-11.0) 04/21/19 19:27 RBC 3.89 M/mm3 (3.65-5.03) 04/21/19 19:27 Hgb 11.6 gm/dl (10.1-14.3) 04/21/19 19:27 Hct 35.3 % (30.3-42.9) 04/21/19 19:27 MCV 91 fl (79-97) 04/21/19 19:27 MCH 30 pg (28-32) 04/21/19 19:27 MCHC 33 % (30-34) 04/21/19 19:27 RDW 12.9 % (13.2-15.2) L 04/21/19 19:27 Plt Count 246 K/mm3 (140-440) 04/21/19 19:27 Lymph % (Auto) 41.3 % (13.4-35.0) H 04/21/19 19:27 [place] % (Auto) 7.2 % (0.0-7.3) 04/21/19 19:27 Eos % (Auto) 1.4 % (0.0-4.3) 04/21/19 19:27 Baso % (Auto) 0.7 % (0.0-1.8) 04/21/19 19:27 Lymph # 2.6 K/mm3 (1.2-5.4) 04/21/19 19:27 [place] # 0.5 K/mm3 (0.0-0.8) 04/21/19 19:27 Eos # 0.1 K/mm3 (0.0-0.4) 04/21/19 19:27 Baso # 0.0 K/mm3 (0.0-0.1) 04/21/19 19:27 Seg Neutrophils % 49.4 % (40.0-70.0) 04/21/19 19:27 Seg Neutrophils # 3.2 K/mm3 (1.8-7.7) 04/21/19 19:27 Sodium 144 mmol/L (137-145) 04/21/19 19:27 Potassium 4.8 mmol/L (3.6-5.0) 04/21/19 19:27 Chloride 109.6 mmol/L (98-107) H 04/21/19 19:27 Carbon Dioxide 20 mmol/L (22-30) L 04/21/19 19:27 Anion Gap 19 mmol/L 04/21/19 19:27 BUN 29 mg/dL (7-17) H 04/21/19 19:27 Creatinine 1.0 mg/dL (0.7-1.2) 04/21/19 19:27 Estimated GFR > 60 ml/min 04/21/19 19:27 BUN/Creatinine Ratio 29 % 04/21/19 19:27 Glucose 184 mg/dL (65-100) H 04/21/19 19:27 POC Glucose 104 (70-105) 04/22/19 06:29 Hemoglobin A1c 7.2 % (4-6) H 04/21/19 19:27 Calcium 9.8 mg/dL (8.4-10.2) 04/21/19 19:27 Total Bilirubin 0.20 mg/dL (0.1-1.2) 04/21/19 19:27 AST 16 units/L (5-40) 04/21/19 19:27 ALT 14 units/L (7-56) 04/21/19 19:27 Alkaline Phosphatase 91 units/L (35-129) 04/21/19 19:27 Total Protein 7.2 g/dL (6.3-8.2) 04/21/19 19:27 Albumin 4.2 g/dL (3.9-5) 04/21/19 19:27 Albumin/Globulin Ratio 1.4 % 04/21/19 19:27 Triglycerides 171 mg/dL (2-149) H 04/21/19 19:27 Cholesterol 239 mg/dL (50-199) H 04/21/19 19:27 LDL Cholesterol Direct 171 mg/dL (50-130) H 04/21/19 19:27 HDL Cholesterol 44 mg/dL (40-59) 04/21/19 19:27 Cholesterol/HDL Ratio 5.43 % 04/21/19 19:27 Last Vital Signs Temp 98.3 F 04/21/19 20:10 Pulse 86 04/21/19 20:10 Resp 20 04/21/19 20:10 BP 154/67 04/21/19 20:10 Pulse Ox 98 04/21/19 20:10
[2019-04-22] MEDS: NICOTINE 21 MG/24 HR PATCH TD SCH (09:52)
[2019-04-22] MEDS: risperiDONE 1 MG TAB PO SCH ×2 (09:52→22:30)
[2019-04-22] MEDS: BENZTROPINE 0.5 MG TAB PO SCH ×2 (09:52→22:29)
--- NOTE | 2019-04-22 10:06 | Consultation ---
History of Present Illness - Reason for Consult Consult date: 04/22/19 Medical Mx - History of Present Illness Yesenia Loomis is a 58y/o black female who was stated to had been brought to the ER by her mother. The patient was said to have jerking like behavior and psychosis. Medications and Allergies Allergies Allergy/AdvReac Type Severity Reaction Status Date / Time morphine Allergy Rash Verified 01/21/18 11:25 Home Medications Medication Instructions Recorded Confirmed Last Taken Type levoFLOXacin [Levaquin TAB] 500 mg PO QDAY #7 tablet 02/12/18 04/22/19 Unknown Rx metFORMIN [Glucophage] 500 mg PO BID #60 tablet 02/12/18 04/22/19 Unknown Rx Nitrofurantoin [place]/M-Cryst 100 mg PO Q12HR #14 capsule 12/13/18 04/22/19 Unknown Rx [Macrobid CAP] Active Meds: Active Medications Benztropine Mesylate (Cogentin) 0.5 mg PO BID [facility] Last Admin: 04/22/19 09:52 Dose: 0.5 mg Documented by: Nicotine (Habitrol) 21 mg TD QDAY [facility] Last Admin: 04/22/19 09:52 Dose: 21 mg Documented by: Risperidone (Risperdal) 1 mg PO BID [facility] Last Admin: 04/22/19 09:52 Dose: 1 mg Documented by: Trazodone HCl (Desyrel) 50 mg PO QHS [facility] Last Admin: 04/21/19 21:23 Dose: 50 mg Documented by: Ziprasidone (Geodon) 10 mg IM Q4H PRN PRN Reason: Agitation Exam - Constitutional Vitals: Temp Pulse Resp BP Pulse Ox 98.3 F 86 20 154/67 98 04/21/19 20:10 04/21/19 20:10 04/21/19 20:10 04/21/19 20:10 04/21/19 20:10 Results - Labs CBC & Chem 7: 04/21/19 19:27 04/21/19 19:27 Labs: Abnormal lab results 04/21/19 04/21/19 04/21/19 Range/Units 19:27 19:27 19:27 RDW 12.9 L (13.2-15.2) % Lymph % (Auto) 41.3 H (13.4-35.0) % Chloride 109.6 H (98-107) mmol/L Carbon Dioxide 20 L (22-30) mmol/L BUN 29 H (7-17) mg/dL Glucose 184 H (65-100) mg/dL POC Glucose (70-105) Hemoglobin A1c 7.2 H (4-6) % Triglycerides 171 H (2-149) mg/dL Cholesterol 239 H (50-199) mg/dL LDL Cholesterol Direct 171 H (50-130) mg/dL // Range/Units 21:00 RDW (13.2-15.2) % Lymph % (Auto) (13.4-35.0) % Chloride (98-107) mmol/L Carbon Dioxide (22-30) mmol/L BUN (7-17) mg/dL Glucose (65-100) mg/dL POC Glucose 154 H (70-105) Hemoglobin A1c (4-6) % Triglycerides (2-149) mg/dL Cholesterol (50-199) mg/dL LDL Cholesterol Direct (50-130) mg/dL
[2019-04-22] MEDS: INSULIN REGULAR, HUMAN 100 UNITS/1 ML SUB-Q SCH ×2 (17:16→22:23)
[2019-04-22] MEDS ORDERED: NITROFURANTOIN MONOHYD/M-CRYST 100 MG CAP PO SCH (22:00)
[2019-04-22] MEDS: metFORMIN 500 MG TAB PO SCH (22:29)
[2019-04-22] MEDS: traZODone 50 MG TAB PO SCH (22:29)
--- NOTE | 2019-04-23 08:24 | Progress Note ---
Subjective Date of service: 04/23/19 Principal diagnosis: Dementia W/Behavioral Disturbances Subjective Comment: Medical records reviewed and patient's progress was discussed with unit staff. Nursing staff states patient is impulsive and unpredictable due to abnormal body movement. She is compliant with meds and no prns given. Pt needed frequent redirection as she was in and out of bed pacing and trying to play with bed controls. In my interview with the patient this morning, the patient is lying in bed asleep. Easily arouses. Still having involuntary movements of head and neck. She's cooperative. She verbalizes an "alright" mood. She denies SI/HI or hallucinations of any kind. She denies any problems with sleep. When asked if her appetite was good, Mrs. Loomis replied "uh-huh." Review of Symptoms: Constitutional: Negative for weight loss ENT: Negative for stridor Respiratory: Negative for cough or hemoptysis All other systems reviewed and are negative MSE Appearance: Wearing appropriate clothing. Behavior: Cooperative, involuntary movements Mood: good Affect: Congruent with stated mood Thought Process: Goal directed Speech: Normal rate. Thought Content Harmfulness Denies SI/HI Hallucinations: patient denies Delusions: none elicited Consciousness: alert Cognition/Memory: poor Insight/Judgment: poor Assessment and Plan - Patient Problems (1) Dementia W/Behavioral Disturbances Current Visit: Yes Status: Acute Treatment Plan Due to the psychiatric conditions and treatment listed in the Assessment and Plan - the patient requires continued hospitalization. Will continue inpatient treatment to allow for medication adjustment and monitoring. Will continue q15 min safety checks. Will encourage the use of environmental modifications and non-pharmacologic approaches for the management of behavioral and psychological symptoms. Medication adjustment made today: Increased Cogentin to help with involuntary movement Will continue current psych medications Monitor for medication side effects. The patient will continue on medications for physical illnesses, and Hospitalist will closely monitor these Continue intensive physical and occupational therapies. Monitor patient's mood, sleep, appetite, and behavior closely. Encourage patient to participate in individual and group therapeutic sessions on the park. Will provide a safe and therapeutic environment for patient. Estimated length of stay 3 days Medications and Allergies Allergies Allergy/AdvReac Type Severity Reaction Status Date / Time morphine Allergy Rash Verified 01/21/18 11:25 Home Medications Medication Instructions Recorded Confirmed Last Taken Type levoFLOXacin [Levaquin TAB] 500 mg PO QDAY #7 tablet 02/12/18 04/22/19 Unknown Rx metFORMIN [Glucophage] 500 mg PO BID #60 tablet 02/12/18 04/22/19 Unknown Rx Nitrofurantoin [place]/M-Cryst 100 mg PO Q12HR #14 capsule 12/13/18 04/22/19 Unknown Rx [Macrobid CAP] Active Meds: Active Medications Benztropine Mesylate (Cogentin) 0.5 mg PO BID [facility] Last Admin: 04/22/19 22:29 Dose: 0.5 mg Documented by: Insulin Human Regular (Humulin R) 0 units SUB-Q ACHS [facility]; Protocol Last Admin: 04/22/19 22:23 Dose: Not Given Documented by: Metformin HCl (Glucophage) 500 mg PO BID [facility] Last Admin: 04/22/19 22:29 Dose: 500 mg Documented by: Nicotine (Habitrol) 21 mg TD QDAY [facility] Last Admin: 04/22/19 09:52 Dose: 21 mg Documented by: Risperidone (Risperdal) 1 mg PO BID [facility] Last Admin: 04/22/19 22:30 Dose: 1 mg Documented by: Trazodone HCl (Desyrel) 50 mg PO QHS [facility] Last Admin: 04/22/19 22:29 Dose: 50 mg Documented by: Ziprasidone (Geodon) 10 mg IM Q4H PRN PRN Reason: Agitation Results - Results Labs/Vitals: Laboratory Last Values WBC 6.4 K/mm3 (4.5-11.0) 04/21/19 19:27 RBC 3.89 M/mm3 (3.65-5.03) 04/21/19 19:27 Hgb 11.6 gm/dl (10.1-14.3) 04/21/19 19:27 Hct 35.3 % (30.3-42.9) 04/21/19 19:27 MCV 91 fl (79-97) 04/21/19 19:27 MCH 30 pg (28-32) 04/21/19 19:27 MCHC 33 % (30-34) 04/21/19 19:27 RDW 12.9 % (13.2-15.2) L 04/21/19 19:27 Plt Count 246 K/mm3 (140-440) 04/21/19 19:27 Lymph % (Auto) 41.3 % (13.4-35.0) H 04/21/19 19:27 [place] % (Auto) 7.2 % (0.0-7.3) 04/21/19 19:27 Eos % (Auto) 1.4 % (0.0-4.3) 04/21/19 19:27 Baso % (Auto) 0.7 % (0.0-1.8) 04/21/19 19:27 Lymph # 2.6 K/mm3 (1.2-5.4) 04/21/19 19:27 [place] # 0.5 K/mm3 (0.0-0.8) 04/21/19 19:27 Eos # 0.1 K/mm3 (0.0-0.4) 04/21/19 19:27 Baso # 0.0 K/mm3 (0.0-0.1) 04/21/19 19:27 Seg Neutrophils % 49.4 % (40.0-70.0) 04/21/19 19:27 Seg Neutrophils # 3.2 K/mm3 (1.8-7.7) 04/21/19 19:27 Sodium 144 mmol/L (137-145) 04/21/19 19:27 Potassium 4.8 mmol/L (3.6-5.0) 04/21/19 19:27 Chloride 109.6 mmol/L (98-107) H 04/21/19 19:27 Carbon Dioxide 20 mmol/L (22-30) L 04/21/19 19:27 Anion Gap 19 mmol/L 04/21/19 19:27 BUN 29 mg/dL (7-17) H 04/21/19 19:27 Creatinine 1.0 mg/dL (0.7-1.2) 04/21/19 19:27 Estimated GFR > 60 ml/min 04/21/19 19:27 BUN/Creatinine Ratio 29 % 04/21/19 19:27 Glucose 184 mg/dL (65-100) H 04/21/19 19:27 POC Glucose 124 (70-105) H 04/22/19 20:45 Hemoglobin A1c 7.2 % (4-6) H 04/21/19 19:27 Calcium 9.8 mg/dL (8.4-10.2) 04/21/19 19:27 Total Bilirubin 0.20 mg/dL (0.1-1.2) 04/21/19 19:27 AST 16 units/L (5-40) 04/21/19 19:27 ALT 14 units/L (7-56) 04/21/19 19:27 Alkaline Phosphatase 91 units/L (35-129) 04/21/19 19:27 Total Protein 7.2 g/dL (6.3-8.2) 04/21/19 19:27 Albumin 4.2 g/dL (3.9-5) 04/21/19 19:27 Albumin/Globulin Ratio 1.4 % 04/21/19 19:27 Triglycerides 171 mg/dL (2-149) H 04/21/19 19:27 Cholesterol 239 mg/dL (50-199) H 04/21/19 19:27 LDL Cholesterol Direct 171 mg/dL (50-130) H 04/21/19 19:27 HDL Cholesterol 44 mg/dL (40-59) 04/21/19 19:27 Cholesterol/HDL Ratio 5.43 % 04/21/19 19:27 Last Vital Signs Temp 98.7 F 04/22/19 22:00 Pulse 83 04/22/19 22:00 Resp 20 04/22/19 22:00 BP 124/71 04/22/19 22:00 Pulse Ox 98 04/22/19 22:00
[2019-04-23] MEDS: INSULIN REGULAR, HUMAN 100 UNITS/1 ML SUB-Q SCH ×4 (09:19→21:37)
[2019-04-23] MEDS ORDERED: levoFLOXacin 500 MG TAB PO SCH (10:00)
[2019-04-23] MEDS: BENZTROPINE 1 MG TAB PO SCH ×2 (10:26→21:02)
[2019-04-23] MEDS: metFORMIN 500 MG TAB PO SCH ×2 (10:26→21:03)
[2019-04-23] MEDS: NICOTINE 21 MG/24 HR PATCH TD SCH (10:26)
[2019-04-23] MEDS: risperiDONE 1 MG TAB PO SCH ×2 (10:26→21:03)
[2019-04-23] MEDS: traZODone 50 MG TAB PO SCH (21:03)
--- NOTE | 2019-04-24 07:26 | Progress Note ---
Subjective Date of service: 04/24/19 Principal diagnosis: Dementia W/Behavioral Disturbances Subjective Comment: Medical records reviewed and patient's progress was discussed with unit staff. Nursing staff states Pt is alert and oriented to person, abnormal upper body movement, calm and cooperative, able to make needs known, follows commend, interacts with staff on approach, medication compliance, good appetite, denies SI/HI, denies A/V hallucination. In my interview with the patient this morning, the patient is lying in bed asleep. Easily arouses. The involuntary movements doesn't appear to be as bad as yesterday. The patient is calm and cooperative. She says her mood is "okay." She says her night went "okay." Mrs Loomis denies SI/HI, delusions of any kind. She says her appetite is good. Review of Symptoms: Constitutional: Negative for weight loss ENT: Negative for stridor Respiratory: Negative for cough or hemoptysis All other systems reviewed and are negative MSE Appearance: Wearing appropriate clothing. In bed. Behavior: Calm, Cooperative, involuntary movements Mood: "okay" Affect: Congruent with stated mood Thought Process: Goal directed Speech: Normal rate. Thought Content Harmfulness Denies SI/HI Hallucinations: patient denies Delusions: none elicited Consciousness: alert Cognition/Memory: poor Insight/Judgment: poor Assessment and Plan - Patient Problems (1) Dementia W/Behavioral Disturbances Current Visit: Yes Status: Acute Treatment Plan Due to the psychiatric conditions and treatment listed in the Assessment and Plan - the patient requires continued hospitalization. Will continue inpatient treatment to allow for medication adjustment and monitoring. Will continue q15 min safety checks. Will encourage the use of environmental modifications and non-pharmacologic approaches for the management of behavioral and psychological symptoms. Medication adjustment made today: will adjust Cogentin dose 1mg daily, 2mg PM to further reduce involuntary movements Will continue current psych medications Monitor for medication side effects. The patient will continue on medications for physical illnesses, and Hospitalist will closely monitor these Continue intensive physical and occupational therapies. Monitor patient's mood, sleep, appetite, and behavior closely. Encourage patient to participate in individual and group therapeutic sessions [place] the park. Will provide a safe and therapeutic environment for patient. Estimated length of stay 1 to 2 days Medications and Allergies Allergies Allergy/AdvReac Type Severity Reaction Status Date / Time morphine Allergy Rash Verified 01/21/18 11:25 Home Medications Medication Instructions Recorded Confirmed Last Taken Type levoFLOXacin [Levaquin TAB] 500 mg PO QDAY #7 tablet 02/12/18 04/22/19 Unknown Rx metFORMIN [Glucophage] 500 mg PO BID #60 tablet 02/12/18 04/22/19 Unknown Rx Nitrofurantoin [place]/M-Cryst 100 mg PO Q12HR #14 capsule 12/13/18 04/22/19 Unknown Rx [Macrobid CAP] Active Meds: Active Medications Atorvastatin Calcium (Lipitor) [address] [facility] Last Admin: 04/23/19 21:03 Dose: 20 mg Documented by: Benztropine Mesylate (Cogentin) [address] [facility] Last Admin: 04/23/19 21:02 Dose: 1 mg Documented by: Insulin Human Regular (Humulin R) 0 units SUB-Q ACHS [facility]; Protocol Last Admin: 04/23/19 21:37 Dose: Not Given Documented by: Metformin HCl (Glucophage) [address] [facility] Last Admin: 04/23/19 21:03 Dose: 500 mg Documented by: Nicotine (Habitrol) [address] [facility] Last Admin: 04/23/19 10:26 Dose: 21 mg Documented by: Risperidone (Risperdal) [address] [facility] Last Admin: 04/23/19 21:03 Dose: 1 mg Documented by: Trazodone HCl (Desyrel) [address] [facility] Last Admin: 04/23/19 21:03 Dose: 50 mg Documented by: Ziprasidone (Geodon) 10 mg IM Q4H PRN PRN Reason: Agitation Results - Results Labs/Vitals: Laboratory Last Values WBC 6.4 K/mm3 (4.5-11.0) 04/21/19 19:27 RBC 3.89 M/mm3 (3.65-5.03) 04/21/19 19:27 Hgb 11.6 gm/dl (10.1-14.3) 04/21/19 19:27 Hct 35.3 % (30.3-42.9) 04/21/19 19:27 MCV 91 fl (79-97) 04/21/19 19:27 MCH 30 pg (28-32) 04/21/19 19:27 MCHC 33 % (30-34) 04/21/19 19:27 RDW 12.9 % (13.2-15.2) L 04/21/19 19:27 Plt Count 246 K/mm3 (140-440) 04/21/19 19:27 Lymph % (Auto) 41.3 % (13.4-35.0) H 04/21/19 19:27 [place] % (Auto) 7.2 % (0.0-7.3) 04/21/19 19:27 Eos % (Auto) 1.4 % (0.0-4.3) 04/21/19 19:27 Baso % (Auto) 0.7 % (0.0-1.8) 04/21/19 19:27 Lymph # 2.6 K/mm3 (1.2-5.4) 04/21/19 19:27 [place] # 0.5 K/mm3 (0.0-0.8) 04/21/19 19:27 Eos # 0.1 K/mm3 (0.0-0.4) 04/21/19 19:27 Baso # 0.0 K/mm3 (0.0-0.1) 04/21/19 19:27 Seg Neutrophils % 49.4 % (40.0-70.0) 04/21/19 19:27 Seg Neutrophils # 3.2 K/mm3 (1.8-7.7) 04/21/19 19:27 Sodium 144 mmol/L (137-145) 04/21/19 19:27 Potassium 4.8 mmol/L (3.6-5.0) 04/21/19 19:27 Chloride 109.6 mmol/L (98-107) H 04/21/19 19:27 Carbon Dioxide 20 mmol/L (22-30) L 04/21/19 19:27 Anion Gap 19 mmol/L 04/21/19 19:27 BUN 29 mg/dL (7-17) H 04/21/19 19:27 Creatinine 1.0 mg/dL (0.7-1.2) 04/21/19 19:27 Estimated GFR > 60 ml/min 04/21/19 19:27 BUN/Creatinine Ratio 29 % 04/21/19 19:27 Glucose 184 mg/dL (65-100) H 04/21/19 19:27 POC Glucose 129 (70-105) H 04/24/19 06:23 Hemoglobin A1c 7.2 % (4-6) H 04/21/19 19:27 Calcium 9.8 mg/dL (8.4-10.2) 04/21/19 19:27 Total Bilirubin 0.20 mg/dL (0.1-1.2) 04/21/19 19:27 AST 16 units/L (5-40) 04/21/19 19:27 ALT 14 units/L (7-56) 04/21/19 19:27 Alkaline Phosphatase 91 units/L (35-129) 04/21/19 19:27 Total Protein 7.2 g/dL (6.3-8.2) 04/21/19 19:27 Albumin 4.2 g/dL (3.9-5) 04/21/19 19:27 Albumin/Globulin Ratio 1.4 % 04/21/19 19:27 Triglycerides 171 mg/dL (2-149) H 04/21/19 19:27 Cholesterol 239 mg/dL (50-199) H 04/21/19 19:27 LDL Cholesterol Direct 171 mg/dL (50-130) H 04/21/19 19:27 HDL Cholesterol 44 mg/dL (40-59) 04/21/19 19:27 Cholesterol/HDL Ratio 5.43 % 04/21/19 19:27 Last Vital Signs Temp 98.7 F 04/23/19 22:00 Pulse 81 04/23/19 22:00 Resp 18 04/23/19 22:00 BP 129/67 04/23/19 22:00 Pulse Ox 99 04/23/19 22:00
[2019-04-24] MEDS: INSULIN REGULAR, HUMAN 100 UNITS/1 ML SUB-Q SCH ×4 (08:03→21:54)
[2019-04-24] MEDS: NICOTINE 21 MG/24 HR PATCH TD SCH (09:52)
[2019-04-24] MEDS: metFORMIN 500 MG TAB PO SCH ×2 (09:53→21:34)
[2019-04-24] MEDS: BENZTROPINE 1 MG TAB PO SCH (09:53)
[2019-04-24] MEDS: risperiDONE 1 MG TAB PO SCH ×2 (09:53→21:47)
[2019-04-24] MEDS: traZODone 50 MG TAB PO SCH (21:35)
[2019-04-25] MEDS: INSULIN REGULAR, HUMAN 100 UNITS/1 ML SUB-Q SCH ×4 (07:14→21:16)
--- NOTE | 2019-04-25 07:46 | Progress Note ---
Subjective Principal diagnosis: Dementia W/Behavioral Disturbances Subjective Comment: I interviewed the patient this morning. Medical records reviewed and patient's progress was discussed with unit staff. Nursing staff reports that patient. She was calm and pleasant. Attended group with minimal interaction. Patient denies SI/HI/AH/VH. She went to bed around 2200 and rested quietly throughout the night. Presents as sleeping 7 plus hours. In my morning interview with the patient, the patient reported that she was eating and sleeping well.The patient stated that she was taking her meds, and is not experiencing any side effects.The patient stated she doesn't hear voices, does not want to harm herself or others, is not paranoid, and has no thoughts of suicide Review of Symptoms: Constitutional: Negative for weight loss ENT: Negative for stridor Respiratory: Negative for cough or hemoptysis All other systems reviewed and are negative MSE Appearance: Wearing appropriate clothing. Good hygiene Behavior: Pleasant and cooperative. Mood: "Good" Affect: Congruent with stated mood Thought Process: Goal directed Speech: Normal rate. Thought Content Harmfulness Denies SI/HI Hallucinations: patient denies Delusions: none elicited Consciousness: alert. Cognition/Memory: normal. Insight/Judgment: Limited. Treatment Plan Due to the psychiatric conditions and treatment listed in the Assessment and Plan - the patient requires continued hospitalization. Will continue inpatient treatment to allow for medication adjustment and monitoring. Will continue q15 min safety checks. Will encourage the use of environmental modifications and non-pharmacologic approaches for the management of behavioral and psychological symptoms. Will continue current psych medications Monitor for medication side effects. The patient will continue on medications for physical illnesses, and Hospitalist will closely monitor these Continue intensive physical and occupational therapies. Monitor patient's mood, sleep, appetite, and behavior closely. Encourage patient to participate in individual and group therapeutic sessions [place] the park. Will provide a safe and therapeutic environment for patient. ELOS 3 DAYS Medications and Allergies Allergies Allergy/AdvReac Type Severity Reaction Status Date / Time morphine Allergy Rash Verified 01/21/18 11:25 Home Medications Medication Instructions Recorded Confirmed Last Taken Type levoFLOXacin [Levaquin TAB] 500 mg PO QDAY #7 tablet 02/12/18 04/22/19 Unknown Rx metFORMIN [Glucophage] 500 mg PO BID #60 tablet 02/12/18 04/22/19 Unknown Rx Nitrofurantoin [place]/M-Cryst 100 mg PO Q12HR #14 capsule 12/13/18 04/22/19 Unknown Rx [Macrobid CAP] Active Meds: Active Medications Atorvastatin Calcium (Lipitor) 20 mg PO QHS [facility] Last Admin: 04/24/19 21:34 Dose: 20 mg Documented by: Benztropine Mesylate (Cogentin) 1 mg PO DAILY [facility] Last Admin: 04/24/19 09:53 Dose: 1 mg Documented by: Insulin Human Regular (Humulin R) 0 units SUB-Q ACHS [facility]; Protocol Last Admin: 04/25/19 07:14 Dose: Not Given Documented by: Metformin HCl (Glucophage) 500 mg PO BID [facility] Last Admin: 04/24/19 21:34 Dose: 500 mg Documented by: Nicotine (Habitrol) 21 mg TD QDAY [facility] Last Admin: 04/24/19 09:52 Dose: 21 mg Documented by: Risperidone (Risperdal) 1 mg PO BID [facility] Last Admin: 04/24/19 21:47 Dose: 1 mg Documented by: Trazodone HCl (Desyrel) 50 mg PO QHS [facility] Last Admin: 04/24/19 21:35 Dose: 50 mg Documented by: Ziprasidone (Geodon) 10 mg IM Q4H PRN PRN Reason: Agitation Results - Results Labs/Vitals: Laboratory Last Values WBC 6.4 K/mm3 (4.5-11.0) 04/21/19 19:27 RBC 3.89 M/mm3 (3.65-5.03) 04/21/19 19:27 Hgb 11.6 gm/dl (10.1-14.3) 04/21/19 19:27 Hct 35.3 % (30.3-42.9) 04/21/19 19:27 MCV 91 fl (79-97) 04/21/19 19:27 MCH 30 pg (28-32) 04/21/19 19:27 MCHC 33 % (30-34) 04/21/19 19:27 RDW 12.9 % (13.2-15.2) L 04/21/19 19:27 Plt Count 246 K/mm3 (140-440) 04/21/19 19:27 Lymph % (Auto) 41.3 % (13.4-35.0) H 04/21/19 19:27 [place] % (Auto) 7.2 % (0.0-7.3) 04/21/19 19:27 Eos % (Auto) 1.4 % (0.0-4.3) 04/21/19 19:27 Baso % (Auto) 0.7 % (0.0-1.8) 04/21/19 19:27 Lymph # 2.6 K/mm3 (1.2-5.4) 04/21/19 19:27 [place] # 0.5 K/mm3 (0.0-0.8) 04/21/19 19:27 Eos # 0.1 K/mm3 (0.0-0.4) 04/21/19 19:27 Baso # 0.0 K/mm3 (0.0-0.1) 04/21/19 19:27 Seg Neutrophils % 49.4 % (40.0-70.0) 04/21/19 19:27 Seg Neutrophils # 3.2 K/mm3 (1.8-7.7) 04/21/19 19:27 Sodium 144 mmol/L (137-145) 04/21/19 19:27 Potassium 4.8 mmol/L (3.6-5.0) 04/21/19 19:27 Chloride 109.6 mmol/L (98-107) H 04/21/19 19:27 Carbon Dioxide 20 mmol/L (22-30) L 04/21/19 19:27 Anion Gap 19 mmol/L 04/21/19 19:27 BUN 29 mg/dL (7-17) H 04/21/19 19:27 Creatinine 1.0 mg/dL (0.7-1.2) 04/21/19 19:27 Estimated GFR > 60 ml/min 04/21/19 19:27 BUN/Creatinine Ratio 29 % 04/21/19 19:27 Glucose 184 mg/dL (65-100) H 04/21/19 19:27 POC Glucose 110 (70-105) H 04/25/19 07:06 Hemoglobin A1c 7.2 % (4-6) H 04/21/19 19:27 Calcium 9.8 mg/dL (8.4-10.2) 04/21/19 19:27 Total Bilirubin 0.20 mg/dL (0.1-1.2) 04/21/19 19:27 AST 16 units/L (5-40) 04/21/19 19:27 ALT 14 units/L (7-56) 04/21/19 19:27 Alkaline Phosphatase 91 units/L (35-129) 04/21/19 19:27 Total Protein 7.2 g/dL (6.3-8.2) 04/21/19 19:27 Albumin 4.2 g/dL (3.9-5) 04/21/19 19:27 Albumin/Globulin Ratio 1.4 % 04/21/19 19:27 Triglycerides 171 mg/dL (2-149) H 04/21/19 19:27 Cholesterol 239 mg/dL (50-199) H 04/21/19 19:27 LDL Cholesterol Direct 171 mg/dL (50-130) H 04/21/19 19:27 HDL Cholesterol 44 mg/dL (40-59) 04/21/19 19:27 Cholesterol/HDL Ratio 5.43 % 04/21/19 19:27 Last Vital Signs Temp 98.6 F 04/24/19 19:33 Pulse 72 04/24/19 19:33 Resp 17 04/24/19 19:33 BP 123/50 04/24/19 19:33 Pulse Ox 99 04/24/19 19:33
[2019-04-25] MEDS: BENZTROPINE 1 MG TAB PO SCH (09:27)
[2019-04-25] MEDS: risperiDONE 1 MG TAB PO SCH ×2 (09:27→21:13)
[2019-04-25] MEDS: metFORMIN 500 MG TAB PO SCH ×2 (09:27→21:14)
[2019-04-25] MEDS: NICOTINE 21 MG/24 HR PATCH TD SCH (09:27)
[2019-04-25] MEDS: traZODone 50 MG TAB PO SCH (21:13)
--- NOTE | 2019-04-26 07:33 | Progress Note ---
Subjective Date of service: 04/26/19 Principal diagnosis: Dementia W/Behavioral Disturbances Subjective Comment: Medical records reviewed and patient's progress was discussed with unit staff. Nursing Note states patient is alert and oriented x's 2-3; person, place, and situation. she has been calm and cooperative. patient is medication compliant. denies si/hi/avh/pain. In my interview with the patient this morning, the patient is lying in bed asleep. Easily arouses. She's still having some involuntary movements. Ms. Loomis is a/o x 2. She states she feels "okay," and her night "wasn't bad." She denies SI/HI and hallucinations of any kind. The patient states her appetite is "fine." Reason for continued inpatient treatment: Patient continues to experience intolerable involuntary movements. Review of Symptoms: Constitutional: Negative for weight loss ENT: Negative for stridor Respiratory: Negative for cough or hemoptysis All other systems reviewed and are negative MSE Appearance: Wearing appropriate clothing. In bed. Behavior: Calm, Cooperative, involuntary movements Mood: "okay" Affect: Congruent with stated mood Thought Process: Goal directed Speech: Normal rate. Thought Content Harmfulness Denies SI/HI Hallucinations: patient denies Delusions: none elicited Consciousness: alert Cognition/Memory: poor Insight/Judgment: poor Assessment and Plan - Patient Problems (1) Dementia W/Behavioral Disturbances Current Visit: Yes Status: Acute Treatment Plan Due to the psychiatric conditions and treatment listed in the Assessment and P sue - the patient requires continued hospitalization. Will continue inpatient treatment to allow for medication adjustment and monitoring. Will continue q15 min safety checks. Will encourage the use of environmental modifications and non-pharmacologic approaches for the management of behavioral and psychological symptoms. Medication adjustment made today: Cogentin dose adjusted to address EPSE. Will continue current psych medications Monitor for medication side effects. The patient will continue on medications for physical illnesses, and Hospitalist will closely monitor these Continue intensive physical and occupational therapies. Monitor patient's mood, sleep, appetite, and behavior closely. Encourage patient to participate in individual and group therapeutic sessions on the park. Will provide a safe and therapeutic environment for patient. Estimated length of stay 2 days Objective - Criteria for Continued Treatment Criteria for Continued Treatment: Improving Level of Functioning, Stablizing Level of Functioning, Improving Emotional/Socia Medications and Allergies Allergies Allergy/AdvReac Type Severity Reaction Status Date / Time morphine Allergy Rash Verified 01/21/18 11:25 Home Medications Medication Instructions Recorded Confirmed Last Taken Type levoFLOXacin [Levaquin TAB] 500 mg PO QDAY #7 tablet 02/12/18 04/22/19 Unknown Rx metFORMIN [Glucophage] 500 mg PO BID #60 tablet 02/12/18 04/22/19 Unknown Rx Nitrofurantoin [place]/M-Cryst 100 mg PO Q12HR #14 capsule 12/13/18 04/22/19 Unknown Rx [Macrobid CAP] Active Meds: Active Medications Atorvastatin Calcium (Lipitor) 20 mg PO QHS [facility] Last Admin: 04/25/19 21:13 Dose: 20 mg Documented by: Benztropine Mesylate (Cogentin) 1 mg PO DAILY [facility] Last Admin: 04/25/19 09:27 Dose: 1 mg Documented by: Insulin Human Regular (Humulin R) 0 units SUB-Q ACHS [facility]; Protocol Last Admin: 04/25/19 21:16 Dose: 2 units Documented by: Metformin HCl (Glucophage) 500 mg PO BID [facility] Last Admin: 04/25/19 21:14 Dose: 500 mg Documented by: Nicotine (Habitrol) 21 mg TD QDAY [facility] Last Admin: 04/25/19 09:27 Dose: 21 mg Documented by: Risperidone (Risperdal) 1 mg PO BID [facility] Last Admin: 04/25/19 21:13 Dose: 1 mg Documented by: Trazodone HCl (Desyrel) 50 mg PO QHS [facility] Last Admin: 04/25/19 21:13 Dose: 50 mg Documented by: Ziprasidone (Geodon) 10 mg IM Q4H PRN PRN Reason: Agitation Results - Results Labs/Vitals: Laboratory Last Values WBC 6.4 K/mm3 (4.5-11.0) 04/21/19 19:27 RBC 3.89 M/mm3 (3.65-5.03) 04/21/19 19:27 Hgb 11.6 gm/dl (10.1-14.3) 04/21/19 19:27 Hct 35.3 % (30.3-42.9) 04/21/19 19:27 MCV 91 fl (79-97) 04/21/19 19:27 MCH 30 pg (28-32) 04/21/19 19:27 MCHC 33 % (30-34) 04/21/19 19:27 RDW 12.9 % (13.2-15.2) L 04/21/19 19:27 Plt Count 246 K/mm3 (140-440) 04/21/19 19:27 Lymph % (Auto) 41.3 % (13.4-35.0) H 04/21/19 19:27 [place] % (Auto) 7.2 % (0.0-7.3) 04/21/19 19:27 Eos % (Auto) 1.4 % (0.0-4.3) 04/21/19 19:27 Baso % (Auto) 0.7 % (0.0-1.8) 04/21/19 19: Lymph # 2.6 K/mm3 (1.2-5.4) 04/21/19 19: [place] # 0.5 K/mm3 (0.0-0.8) 04/21/19 19: Eos # 0.1 K/mm3 (0.0-0.4) 04/21/19 19: Baso # 0.0 K/mm3 (0.0-0.1) 04/21/19 19: Seg Neutrophils % 49.4 % (40.0-70.0) 04/21/19 19: Seg Neutrophils # 3.2 K/mm3 (1.8-7.7) 04/21/19 19:27 Sodium 144 mmol/L (137-145) 04/21/19 19:27 Potassium 4.8 mmol/L (3.6-5.0) 04/21/19 19:27 Chloride 109.6 mmol/L (98-107) H 04/21/19 19:27 Carbon Dioxide 20 mmol/L (22-30) L 04/21/19 19:27 Anion Gap 19 mmol/L 04/21/19 19:27 BUN 29 mg/dL (7-17) H 04/21/19 19:27 Creatinine 1.0 mg/dL (0.7-1.2) 04/21/19 19:27 Estimated GFR > 60 ml/min 04/21/19 19:27 BUN/Creatinine Ratio 29 % 04/21/19 19:27 Glucose 184 mg/dL (65-100) H 04/21/19 19:27 POC Glucose 209 (70-105) H 04/25/19 20:02 Hemoglobin A1c 7.2 % (4-6) H 04/21/19 19:27 Calcium 9.8 mg/dL (8.4-10.2) 04/21/19 19:27 Total Bilirubin 0.20 mg/dL (0.1-1.2) 04/21/19 19:27 AST 16 units/L (5-40) 04/21/19 19:27 ALT 14 units/L (7-56) 04/21/19 19:27 Alkaline Phosphatase 91 units/L (35-129) 04/21/19 19:27 Total Protein 7.2 g/dL (6.3-8.2) 04/21/19 19:27 Albumin 4.2 g/dL (3.9-5) 04/21/19 19:27 Albumin/Globulin Ratio 1.4 % 04/21/19 19:27 Triglycerides 171 mg/dL (2-149) H 04/21/19 19:27 Cholesterol 239 mg/dL (50-199) H 04/21/19 19:27 LDL Cholesterol Direct 171 mg/dL (50-130) H 04/21/19 19:27 HDL Cholesterol 44 mg/dL (40-59) 04/21/19 19:27 Cholesterol/HDL Ratio 5.43 % 04/21/19 19:27 Last Vital Signs Temp 98.7 F 04/25/19 20:00 Pulse 99 H 04/25/19 20:00 Resp 18 04/25/19 20:00 BP 136/52 04/25/19 20:00 Pulse Ox 100 04/25/19 20:00
[2019-04-26] MEDS: INSULIN REGULAR, HUMAN 100 UNITS/1 ML SUB-Q SCH ×4 (09:33→21:30)
[2019-04-26] MEDS: metFORMIN 500 MG TAB PO SCH ×2 (09:34→21:30)
[2019-04-26] MEDS: BENZTROPINE 1 MG TAB PO SCH ×2 (09:34→21:30)
[2019-04-26] MEDS: NICOTINE 21 MG/24 HR PATCH TD SCH (09:34)
[2019-04-26] MEDS: risperiDONE 1 MG TAB PO SCH ×2 (09:34→21:30)
[2019-04-26] MEDS: traZODone 50 MG TAB PO SCH (21:30)
--- NOTE | 2019-04-27 07:30 | Progress Note ---
Subjective Date of service: 04/27/19 Principal diagnosis: Dementia W/Behavioral Disturbances Subjective Comment: I interviewed the patient this morning. Medical records reviewed and patient's progress was discussed with unit staff. Nursing staff reports that patient is tolerating medication and meals, alert and oriented to person and place,calm and cooperative, denies SI/HI, denies A/V/H, no behavioral issues, follows command In my interview with the patient this morning, the patient reports mood as feeling good. Appetite is very good. Sleep last night was good. Patient denies current SI, HI and denies AVH, contracts to ask the staff for help if any of these symptoms increase. Review of Symptoms: Constitutional: Negative for weight loss ENT: Negative for stridor Respiratory: Negative for cough or hemoptysis All other systems reviewed and are negative MSE Appearance: Wearing appropriate clothing. Good hygiene Behavior: Pleasant and cooperative. Mood: "Good" Affect: Congruent with stated mood Thought Process: Goal directed Speech: Normal rate. Thought Content Harmfulness Denies SI/HI Hallucinations: patient denies Delusions: none elicited Consciousness: alert. Cognition/Memory: normal. Insight/Judgment: Limited. Assessment and Plan - Patient Problems (1) Dementia W/Behavioral Disturbances Current Visit: Yes Status: Acute Treatment Plan Due to the psychiatric conditions and treatment listed in the Assessment and Plan - the patient requires continued hospitalization. Will continue inpatient treatment to allow for medication adjustment and monitoring. Will continue q15 min safety checks. Will encourage the use of environmental modifications and non-pharmacologic approaches for the management of behavioral and psychological symptoms. Will continue current psych medications Monitor for medication side effects. The patient will continue on medications for physical illnesses, and Hospitalist will closely monitor these Continue intensive physical and occupational therapies. Monitor patient's mood, sleep, appetite, and behavior closely. Encourage patient to participate in individual and group therapeutic sessions on the park. Will provide a safe and therapeutic environment for patient. Medications and Allergies Allergies Allergy/AdvReac Type Severity Reaction Status Date / Time morphine Allergy Rash Verified 01/21/18 11:25 Home Medications Medication Instructions Recorded Confirmed Last Taken Type levoFLOXacin [Levaquin TAB] 500 mg PO QDAY #7 tablet 02/12/18 04/22/19 Unknown Rx metFORMIN [Glucophage] 500 mg PO BID #60 tablet 02/12/18 04/22/19 Unknown Rx Nitrofurantoin [place]/M-Cryst 100 mg PO Q12HR #14 capsule 12/13/18 04/22/19 Unknown Rx [Macrobid CAP] Active Meds: Active Medications Atorvastatin Calcium (Lipitor) 20 mg PO QHS [facility] Last Admin: 04/26/19 21:30 Dose: 20 mg Documented by: Benztropine Mesylate (Cogentin) 1 mg PO BID [facility] Last Admin: 04/26/19 21:30 Dose: 1 mg Documented by: Insulin Human Regular (Humulin R) 0 units SUB-Q ACHS [facility]; Protocol Last Admin: 04/26/19 21:30 Dose: Not Given Documented by: Metformin HCl (Glucophage) 500 mg PO BID [facility] Last Admin: 04/26/19 21:30 Dose: 500 mg Documented by: Nicotine (Habitrol) 21 mg TD QDAY [facility] Last Admin: 04/26/19 09:34 Dose: 21 mg Documented by: Risperidone (Risperdal) 1 mg PO BID [facility] Last Admin: 04/26/19 21:30 Dose: 1 mg Documented by: Trazodone HCl (Desyrel) 50 mg PO QHS [facility] Last Admin: 04/26/19 21:30 Dose: 50 mg Documented by: Ziprasidone (Geodon) 10 mg IM Q4H PRN PRN Reason: Agitation Results - Results Labs/Vitals: Laboratory Last Values WBC 6.4 K/mm3 (4.5-11.0) 04/21/19 19:27 RBC 3.89 M/mm3 (3.65-5.03) 04/21/19 19:27 Hgb 11.6 gm/dl (10.1-14.3) 04/21/19 19:27 Hct 35.3 % (30.3-42.9) 04/21/19 19:27 MCV 91 fl (79-97) 04/21/19 19:27 MCH 30 pg (28-32) 04/21/19 19:27 MCHC 33 % (30-34) 04/21/19 19:27 RDW 12.9 % (13.2-15.2) L 04/21/19 19:27 Plt Count 246 K/mm3 (140-440) 04/21/19 19:27 Lymph % (Auto) 41.3 % (13.4-35.0) H 04/21/19 19:27 [place] % (Auto) 7.2 % (0.0-7.3) 04/21/19 19:27 Eos % (Auto) 1.4 % (0.0-4.3) 04/21/19 19:27 Baso % (Auto) 0.7 % (0.0-1.8) 04/21/19 19:27 Lymph # 2.6 K/mm3 (1.2-5.4) 04/21/19 19:27 [place] # 0.5 K/mm3 (0.0-0.8) 04/21/19 19:27 Eos # 0.1 K/mm3 (0.0-0.4) 04/21/19 19:27 Baso # 0.0 K/mm3 (0.0-0.1) 04/21/19 19:27 Seg Neutrophils % 49.4 % (40.0-70.0) 04/21/19 19:27 Seg Neutrophils # 3.2 K/mm3 (1.8-7.7) 04/21/19 19:27 Sodium 144 mmol/L (137-145) 04/21/19 19:27 Potassium 4.8 mmol/L (3.6-5.0) 04/21/19 19:27 Chloride 109.6 mmol/L (98-107) H 04/21/19 19:27 Carbon Dioxide 20 mmol/L (22-30) L 04/21/19 19:27 Anion Gap 19 mmol/L 04/21/19 19:27 BUN 29 mg/dL (7-17) H 04/21/19 19:27 Creatinine 1.0 mg/dL (0.7-1.2) 04/21/19 19:27 Estimated GFR > 60 ml/min 04/21/19 19:27 BUN/Creatinine Ratio 29 % 04/21/19 19:27 Glucose 184 mg/dL (65-100) H 04/21/19 19:27 POC Glucose 87 (70-105) 04/27/19 06:25 Hemoglobin A1c 7.2 % (4-6) H 04/21/19 19:27 Calcium 9.8 mg/dL (8.4-10.2) 04/21/19 19:27 Total Bilirubin 0.20 mg/dL (0.1-1.2) 04/21/19 19:27 AST 16 units/L (5-40) 04/21/19 19:27 ALT 14 units/L (7-56) 04/21/19 19:27 Alkaline Phosphatase 91 units/L (35-129) 04/21/19 19:27 Total Protein 7.2 g/dL (6.3-8.2) 04/21/19 19:27 Albumin 4.2 g/dL (3.9-5) 04/21/19 19:27 Albumin/Globulin Ratio 1.4 % 04/21/19 19:27 Triglycerides 171 mg/dL (2-149) H 04/21/19 19:27 Cholesterol 239 mg/dL (50-199) H 04/21/19 19:27 LDL Cholesterol Direct 171 mg/dL (50-130) H 04/21/19 19:27 HDL Cholesterol 44 mg/dL (40-59) 04/21/19 19:27 Cholesterol/HDL Ratio 5.43 % 04/21/19 19:27 Last Vital Signs Temp 98.7 F 04/26/19 19:39 Pulse 95 H 04/26/19 19:39 Resp 20 04/26/19 19:39 BP 132/80 04/26/19 19:39 Pulse Ox 100 04/26/19 19:39
[2019-04-27] MEDS: INSULIN REGULAR, HUMAN 100 UNITS/1 ML SUB-Q SCH ×4 (08:21→21:35)
[2019-04-27] MEDS: NICOTINE 21 MG/24 HR PATCH TD SCH (09:42)
[2019-04-27] MEDS: risperiDONE 1 MG TAB PO SCH ×2 (09:42→21:34)
[2019-04-27] MEDS: metFORMIN 500 MG TAB PO SCH ×2 (09:43→21:34)
[2019-04-27] MEDS: BENZTROPINE 1 MG TAB PO SCH ×2 (09:43→21:35)
[2019-04-27] MEDS: traZODone 50 MG TAB PO SCH (21:34)
[2019-04-27 21:56] VITALS: BP 123/47
[2019-04-28] MEDS: INSULIN REGULAR, HUMAN 100 UNITS/1 ML SUB-Q SCH ×3 (07:18→16:31)
--- NOTE | 2019-04-28 07:47 | Progress Note ---
Subjective Date of service: 04/28/19 Principal diagnosis: Dementia W/Behavioral Disturbances Subjective Comment: I interviewed the patient this morning. Medical records reviewed and patient's progress was discussed with unit staff. Nursing staff reports that patient.S was calm and pleasant. Attended group with minimal interaction. Patient denies SI/HI/AH/VH. She went to bed around 2200 and rested quietly throughout the night. Presents as sleeping 7 plus hours. In my morning interview with the patient, the patient reported that she was eating and sleeping well.The patient stated that she was taking her meds, and is not experiencing any side effects.The patient stated she doesn't hear voices, does not want to harm herself or others, is not paranoid, and has no thoughts of suicide Review of Symptoms: Constitutional: Negative for weight loss ENT: Negative for stridor Respiratory: Negative for cough or hemoptysis All other systems reviewed and are negative MSE Appearance: Wearing appropriate clothing. Good hygiene Behavior: Pleasant and cooperative. Mood: "Good" Affect: Congruent with stated mood Thought Process: Goal directed Speech: Normal rate. Thought Content Harmfulness Denies SI/HI Hallucinations: patient denies Delusions: none elicited Consciousness: alert. Cognition/Memory: normal. Insight/Judgment: Limited. Treatment Plan Due to the psychiatric conditions and treatment listed in the Assessment and Plan - the patient requires continued hospitalization. Will continue inpatient treatment to allow for medication adjustment and monitor ing. Will continue q15 min safety checks. Will encourage the use of environmental modifications and non-pharmacologic approaches for the management of behavioral and psychological symptoms. Will continue current psych medications Monitor for medication side effects. The patient will continue on medications for physical illnesses, and Hospitalist will closely monitor these Continue intensive physical and occupational therapies. Monitor patient's mood, sleep, appetite, and behavior closely. Encourage patient to participate in individual and group therapeutic sessions on the park. Will provide a safe and therapeutic environment for patient. ELOS 3 DAYS Medications and Allergies Allergies Allergy/AdvReac Type Severity Reaction Status Date / Time morphine Allergy Rash Verified 01/21/18 11:25 Home Medications Medication Instructions Recorded Confirmed Last Taken Type levoFLOXacin [Levaquin TAB] 500 mg PO QDAY #7 tablet 02/12/18 04/22/19 Unknown Rx metFORMIN [Glucophage] 500 mg PO BID #60 tablet 02/12/18 04/22/19 Unknown Rx Nitrofurantoin [place]/M-Cryst 100 mg PO Q12HR #14 capsule 12/13/18 04/22/19 Unknown Rx [Macrobid CAP] Active Meds: Active Medications Atorvastatin Calcium (Lipitor) 20 mg PO QHS [facility] Last Admin: 04/27/19 21:34 Dose: 20 mg Documented by: Benztropine Mesylate (Cogentin) 1 mg PO BID [facility] Last Admin: 04/27/19 21:35 Dose: 1 mg Documented by: Insulin Human Regular (Humulin R) 0 units SUB-Q ACHS [facility]; Protocol Last Admin: 04/28/19 07:18 Dose: Not Given Documented by: Metformin HCl (Glucophage) 500 mg PO BID [facility] Last Admin: 04/27/19 21:34 Dose: 500 mg Documented by: Nicotine (Habitrol) 21 mg TD QDAY [facility] Last Admin: 04/27/19 09:42 Dose: 21 mg Documented by: Risperidone (Risperdal) 1 mg PO BID [facility] Last Admin: 04/27/19 21:34 Dose: 1 mg Documented by: Trazodone HCl (Desyrel) 50 mg PO QHS [facility] Last Admin: 04/27/19 21:34 Dose: 50 mg Documented by: Ziprasidone (Geodon) 10 mg IM Q4H PRN PRN Reason: Agitation Results - Results Labs/Vitals: Laboratory Last Values WBC 6.4 K/mm3 (4.5-11.0) 04/21/19 19:27 RBC 3.89 M/mm3 (3.65-5.03) 04/21/19 19:27 Hgb 11.6 gm/dl (10.1-14.3) 04/21/19 19:27 Hct 35.3 % (30.3-42.9) 04/21/19 19:27 MCV 91 fl (79-97) 04/21/19 19:27 MCH 30 pg (28-32) 04/21/19 19:27 MCHC 33 % (30-34) 04/21/19 19:27 RDW 12.9 % (13.2-15.2) L 04/21/19 19:27 Plt Count 246 K/mm3 (140-440) 04/21/19 19:27 Lymph % (Auto) 41.3 % (13.4-35.0) H 04/21/19 19:27 [place] % (Auto) 7.2 % (0.0-7.3) 04/21/19 19:27 Eos % (Auto) 1.4 % (0.0-4.3) 04/21/19 19:27 Baso % (Auto) 0.7 % (0.0-1.8) 04/21/19 19:27 Lymph # 2.6 K/mm3 (1.2-5.4) 04/21/19 19:27 [place] # 0.5 K/mm3 (0.0-0.8) 04/21/19 19:27 Eos # 0.1 K/mm3 (0.0-0.4) 04/21/19 19:27 Baso # 0.0 K/mm3 (0.0-0.1) 04/21/19 19:27 Seg Neutrophils % 49.4 % (40.0-70.0) 04/21/19 19:27 Seg Neutrophils # 3.2 K/mm3 (1.8-7.7) 04/21/19 19:27 Sodium 144 mmol/L (137-145) 04/21/19 19:27 Potassium 4.8 mmol/L (3.6-5.0) 04/21/19 19:27 Chloride 109.6 mmol/L (98-107) H 04/21/19 19:27 Carbon Dioxide 20 mmol/L (22-30) L 04/21/19 19:27 Anion Gap 19 mmol/L 04/21/19 19:27 BUN 29 mg/dL (7-17) H 04/21/19 19:27 Creatinine 1.0 mg/dL (0.7-1.2) 04/21/19 19:27 Estimated GFR > 60 ml/min 04/21/19 19:27 BUN/Creatinine Ratio 29 % 04/21/19 19:27 Glucose 184 mg/dL (65-100) H 04/21/19 19:27 POC Glucose 78 (70-105) 04/28/19 06:29 Hemoglobin A1c 7.2 % (4-6) H 04/21/19 19:27 Calcium 9.8 mg/dL (8.4-10.2) 04/21/19 19:27 Total Bilirubin 0.20 mg/dL (0.1-1.2) 04/21/19 19:27 AST 16 units/L (5-40) 04/21/19 19:27 ALT 14 units/L (7-56) 04/21/19 19:27 Alkaline Phosphatase 91 units/L (35-129) 04/21/19 19:27 Total Protein 7.2 g/dL (6.3-8.2) 04/21/19 19:27 Albumin 4.2 g/dL (3.9-5) 04/21/19 19:27 Albumin/Globulin Ratio 1.4 % 04/21/19 19:27 Triglycerides 171 mg/dL (2-149) H 04/21/19 19:27 Cholesterol 239 mg/dL (50-199) H 04/21/19 19:27 LDL Cholesterol Direct 171 mg/dL (50-130) H 04/21/19 19:27 HDL Cholesterol 44 mg/dL (40-59) 04/21/19 19:27 Cholesterol/HDL Ratio 5.43 % 04/21/19 19:27 Last Vital Signs Temp 98.6 F 04/27/19 19:40 Pulse 83 04/27/19 19:40 Resp 18 04/27/19 19:40 BP 123/47 04/27/19 19:40 Pulse Ox 100 04/27/19 19:40
--- NOTE | 2019-04-28 08:50 | Discharge Summary ---
Providers - Providers Date of Admission: 04/21/19 16:27 Date of discharge: 04/28/19 Attending physician: BERTO WEBSTER MD 04/23/19 13:16 Consult to Physician [CONS] Routine Comment: Consulting Provider: JAYCEE ALDRICH Physician Instructions: Reason For Exam: [facility]G[employer] Primary care physician: MADELIN GLORIA Hospitalization Reason for admission: Jerking movements, insomnia, disorientation, and bizarre behavior Condition: Stable Hospital course: The patient was provided inpatient psychiatric treatment with safe and supportive environment, group therapy, psychiatric medication, medication adjustment, adverse effect monitor, medical evaluation, medical treatment, social service assessment, social support meeting and placement assessment. The patients behavior, anxiety and compliance to treatment are improved and stabilized. At the time of discharge, the patient had no suicidal ideas, no homicidal ideas, no aggressive thoughts, no endangering behavior and no debilitating adverse effects. The POA/guardian and family agreed on the treatment plan, understood the risk, benefit, alternative treatment, potential consequence of no treatment, and gave informed consent. Disposition: DC-01 TO HOME OR SELFCARE Time spent for discharge: 36 MINUTES Allergies/Adverse Reactions: Allergies morphine Allergy (Verified 01/21/18 11:25) Rash Vital Signs: Last Vital Signs Temp 98.6 F 04/27/19 19:40 Pulse 83 04/27/19 19:40 Resp 18 04/27/19 19:40 BP 123/47 04/27/19 19:40 Pulse Ox 100 04/27/19 19:40 Last Lab: Laboratory Last Values WBC 6.4 K/mm3 (4.5-11.0) 04/21/19 19:27 RBC 3.89 M/mm3 (3.65-5.03) 04/21/19 19:27 Hgb 11.6 gm/dl (10.1-14.3) 04/21/19 19:27 Hct 35.3 % (30.3-42.9) 04/21/19 19:27 MCV 91 fl (79-97) 04/21/19 19:27 MCH 30 pg (28-32) 04/21/19 19:27 MCHC 33 % (30-34) 04/21/19 19:27 RDW 12.9 % (13.2-15.2) L 04/21/19 19:27 Plt Count 246 K/mm3 (140-440) 04/21/19 19:27 Lymph % (Auto) 41.3 % (13.4-35.0) H 04/21/19 19:27 [place] % (Auto) 7.2 % (0.0-7.3) 04/21/19 19:27 Eos % (Auto) 1.4 % (0.0-4.3) 04/21/19 19:27 Baso % (Auto) 0.7 % (0.0-1.8) 04/21/19 19:27 Lymph # 2.6 K/mm3 (1.2-5.4) 04/21/19 19:27 [place] # 0.5 K/mm3 (0.0-0.8) 04/21/19 19:27 Eos # 0.1 K/mm3 (0.0-0.4) 04/21/19 19:27 Baso # 0.0 K/mm3 (0.0-0.1) 04/21/19 19:27 Seg Neutrophils % 49.4 % (40.0-70.0) 04/21/19 19:27 Seg Neutrophils # 3.2 K/mm3 (1.8-7.7) 04/21/19 19:27 Sodium 144 mmol/L (137-145) 04/21/19 19:27 Potassium 4.8 mmol/L (3.6-5.0) 04/21/19 19:27 Chloride 109.6 mmol/L (98-107) H 04/21/19 19:27 Carbon Dioxide 20 mmol/L (22-30) L 04/21/19 19:27 Anion Gap 19 mmol/L 04/21/19 19:27 BUN 29 mg/dL (7-17) H 04/21/19 19:27 Creatinine 1.0 mg/dL (0.7-1.2) 04/21/19 19:27 Estimated GFR > 60 ml/min 04/21/19 19:27 BUN/Creatinine Ratio 29 % 04/21/19 19:27 Glucose 184 mg/dL (65-100) H 04/21/19 19:27 POC Glucose 78 (70-105) 04/28/19 06:29 Hemoglobin A1c 7.2 % (4-6) H 04/21/19 19:27 Calcium 9.8 mg/dL (8.4-10.2) 04/21/19 19:27 Total Bilirubin 0.20 mg/dL (0.1-1.2) 04/21/19 19:27 AST 16 units/L (5-40) 04/21/19 19:27 ALT 14 units/L (7-56) 04/21/19 19:27 Alkaline Phosphatase 91 units/L (35-129) 04/21/19 19:27 Total Protein 7.2 g/dL (6.3-8.2) 04/21/19 19:27 Albumin 4.2 g/dL (3.9-5) 04/21/19 19:27 Albumin/Globulin Ratio 1.4 % 04/21/19 19:27 Triglycerides 171 mg/dL (2-149) H 04/21/19 19:27 Cholesterol 239 mg/dL (50-199) H 04/21/19 19:27 LDL Cholesterol Direct 171 mg/dL (50-130) H 04/21/19 19:27 HDL Cholesterol 44 mg/dL (40-59) 04/21/19 19:27 Cholesterol/HDL Ratio 5.43 % 04/21/19 19:27 Core Measure Documentation - Palliative Care Palliative Care/ Comfort Measures: Not Applicable - Core Measures Any of the following diagnoses?: none Exam - Constitutional Vitals: Temp Pulse Resp BP Pulse Ox 98.6 F 83 18 123/47 100 04/27/19 19:40 04/27/19 19:40 04/27/19 19:40 04/27/19 19:40 04/27/19 19:40 General appearance: Present: no acute distress - EENT Eyes: Present: PERRL, EOM intact ENT: hearing intact, clear oral mucosa - Neck Neck: Present: supple, normal ROM - Respiratory Respiratory effort: normal Plan Activity: advance as tolerated Weight Bearing Status: Weight Bear as Tolerated Care Plan Goals: Maintain good and stable mental health. Plan of Treatment: The patient should be compliant with medications, not to use drugs and not to drink alcohol. The SNF understands that if suicidal ideas, homicidal ideas, or any endangering thoughts/behavior arise, they should immediately seek for emergent assistance including but not limited to crisis hot line and emergency room. Follow up with outpatient Psychiatrist and PCP within 7 - 14 days of discharge. Health Concerns: Cognitive decline Assessment: Dementia with behavioral disturbance Follow up with: MADELIN GLORIA MD [Primary Care Provider] - 7 Days Prescriptions: traZODone [Desyrel] 50 mg PO QHS #30 tablet AtorvaSTATin [Lipitor] 20 mg PO QHS #30 tablet Benztropine [Cogentin] 1 mg PO BID #60 tablet Nicotine [Habitrol] 21 mg TD QDAY #30 patch risperiDONE [RisperDAL] 1 mg PO BID #60 tablet
[2019-04-28] MEDS: metFORMIN 500 MG TAB PO SCH (09:28)
[2019-04-28] MEDS: BENZTROPINE 1 MG TAB PO SCH (09:29)
[2019-04-28] MEDS: risperiDONE 1 MG TAB PO SCH (09:29)
[2019-04-28] MEDS: NICOTINE 21 MG/24 HR PATCH TD SCH (09:29)
== END 2019-04-28 17:13 | disposition home or self-care (01) | DRG 884 ==
LOC: 3A 14:33 → UNDOADMIN 14:33 → 5A 16:27
PROVIDERS: ADMIT Psychiatry & Neurology Psychiatry; ATTEND Psychiatry & Neurology Psychiatry
DX: F03.91 Unspecified dementia, unspecified severity, with behavioral disturbance (principal); F10.10 Alcohol abuse, uncomplicated; Y90.9 Presence of alcohol in blood, level not specified; F17.210 Nicotine dependence, cigarettes, uncomplicated; E11.9 Type 2 diabetes mellitus without complications; Z88.5 Allergy status to narcotic agent; Z79.84 Long term (current) use of oral hypoglycemic drugs
CPT/HCPCS: 36415; 80048; 80053; 80061; 80307; 80320; 81001; 82962; 83036; 85025; 96360; 96361; 99284; G0378; A9270-GY; G0480; J1815; J7030

== ENCOUNTER 2019-05-22 11:03 | Emergency (ER) | payer MEDICARE ==
--- NOTE | 2019-05-22 11:40 | Emergency Department Report ---
Blank Doc - Documentation Documentation: 58-year-old female that presents with hallucinations. Patient brought by [facility] er. Denies any SI/HI. This initial assessment/diagnostic orders/clinical plan/treatment(s) is/are subject to change based on patient's health status, clinical progression and re- assessment by fellow clinical providers in the ED. Further treatment and workup at subsequent clinical providers discretion. Patient/guardians urged not to elope from the ED as their condition may be serious if not clinically assessed and managed. Initial orders include: 1- Patient sent to MAIN ED for further evaluation and treatment 2- costing manager was notified to have patient be brought back [facility]. 3- RN was notified to keep patient as close range and observation until room available
[2019-05-22 12:44] LABS: Basophils % (Auto) 0.6 % (0.0-1.8); Eosinophils # (Auto) 0.2 K/mm3 (0.0-0.4); Eosinophils % (Auto) 2.5 % (0.0-4.3); Hematocrit 34.4 % (30.3-42.9); Hemoglobin 11.2 gm/dl (10.1-14.3); Lymphocytes % (Auto) 32.5 % (13.4-35.0); Mean Corpuscular HGB Conc 33 % (30-34); Mean Corpuscular Volume 89 fl (79-97); Monocytes # (Auto) 0.4 K/mm3 (0.0-0.8); Monocytes % (Auto) 5.9 % (0.0-7.3); Platelet Count 279 K/mm3 (140-440); Red Blood Count 3.86 M/mm3 (3.65-5.03); Red Cell Distribution Width 12.9 % (13.2-15.2)
[2019-05-22 13:30] LABS: Alanine Aminotransferase 10 units/L (7-56); BUN/Creatinine Ratio 23; Blood Urea Nitrogen 23 mg/dL (7-17); Calcium 9.4 mg/dL (8.4-10.2); Hemolysis Index 3
[2019-05-22 16:36] LABS: Bacteria,Urine 1+ /HPF (Negative); Bilirubin,Urine NEG (Negative); Blood,Urine NEG (Negative); Color,Urine Yellow (Yellow); Mucus,Urine FEW /HPF; Protein,Urine <15 mg/dL mg/dL (Negative); Renal Epithelial Cells,Urine <1 /LPF; Urobilinogen,Urine < 2.0 mg/dL (<2.0)
[2019-05-22 16:42] LABS: Amphetamine Screen,Urine PRESUMPTIVE NEGATIVE; Benzodiazepines Screen,Urine PRESUMPTIVE NEGATIVE; Cannabinoid Screen,Urine PRESUMPTIVE NEGATIVE; Cocaine Screen,Urine PRESUMPTIVE NEGATIVE; Methadone Screen,Urine PRESUMPTIVE NEGATIVE; Opiate Screen,Urine PRESUMPTIVE NEGATIVE
--- NOTE | 2019-05-22 19:23 | Emergency Department Report ---
HPI - General Chief Complaint: Psych Time Seen by Provider: 05/22/19 11:36 - HPI HPI: Room 16 The patient is a 58-year-old female presenting with a chief complaint erratic behavior. The patient states she was brought in by her mother because she has not been getting much sleep at home. Patient has a history of schizophrenia she was reportedly been taking her clothes off and disturbing furniture at home. Patient denies complaints. Patient denies suicidal or homicidal ideation. Patient denies auditory or visual hallucinations Location: [See above] Duration: [See above] Quality: [See above] Severity: [See above] Timing: [See above] Context: [See above] Modifying factors: [See above] Associated signs and symptoms: [see above] ED Past Medical Hx - Past Medical History Hx Diabetes: Yes Hx Psychiatric Treatment: Yes (BIPOLAR, DEMENTIA AND SCHIZOPHRENIA) Hx Dementia: Yes - Family History Family history: no significant - Social History Smoking Status: Current Every Day Smoker Substance Use Type: None, Alcohol (rarely) - Medications Home Medications: Home Medications Medication Instructions Recorded Confirmed Last Taken Type levoFLOXacin [Levaquin TAB] 500 mg PO QDAY #7 tablet 02/12/18 05/23/19 Unknown Rx metFORMIN [Glucophage] 500 mg PO BID #60 tablet 02/12/18 05/23/[address] [place]/M-Cryst 100 mg PO Q12HR #14 capsule 12/13/18 05/23/19 Unkn own Rx [Macrobid CAP] AtorvaSTATin [Lipitor] 20 mg PO QHS #30 tablet 04/28/19 05/23/19 Unknown Rx Benztropine [Cogentin] 1 mg PO BID #60 tablet 04/28/19 05/23/19 Unknown Rx Nicotine [Habitrol] 21 mg TD QDAY #30 patch 04/28/19 05/23/19 Unknown Rx risperiDONE [RisperDAL] 1 mg PO BID #60 tablet 04/28/19 05/23/19 Unknown Rx traZODone [Desyrel] 50 mg PO QHS #30 tablet 04/28/19 05/23/19 Unknown Rx ED Review of Systems ROS: Stated complaint: PSYCH PROBLEMS Other details as noted in HPI Constitutional: no symptoms reported Eyes: denies: eye pain ENT: denies: throat pain Respiratory: no symptoms reported Cardiovascular: denies: chest pain Endocrine: no symptoms reported Gastrointestinal: denies: abdominal pain Genitourinary: denies: dysuria Musculoskeletal: denies: back pain Neurological: denies: headache Psychiatric: denies: auditory hallucinations, visual hallucinations, homicidal thoughts, suicidal thoughts Physical Exam - Physical Exam Vital Signs: Vital Signs 05/22/19 05/22/19 11:18 11:34 Temperature 98.4 F 98.4 F Pulse Rate 117 H 98 H Respiratory 18 16 Rate Blood Pressure 118/73 Blood Pressure 118/73 [Right] O2 Sat by Pulse 100 100 Oximetry Physical Exam: GENERAL: The patient is well-developed well-nourished female sitting on chair not appearing to be in acute distress. [] HEENT: Normocephalic. Atraumatic. Extraocular motions are intact. Patient has moist mucous membranes. NECK: Supple. Trachea midline CHEST/LUNGS: Clear to auscultation. There is no respiratory distress noted. HEART/CARDIOVASCULAR: Regular. There is no tachycardia. There is no gallop rub or murmur. ABDOMEN: Abdomen is soft, nontender. Patient has normal bowel sounds. There is no abdominal distention. SKIN: There is no rash. There is no edema. There is no diaphoresis. NEURO: The patient is awake, alert, and oriented. The patient is cooperative. The patient has normal speech MUSCULOSKELETAL: There is no evidence of acute injury. ED Course Vital Signs 05/22/19 05/22/19 11:18 11:34 Temperature 98.4 F 98.4 F Pulse Rate 117 H 98 H Respiratory 18 16 Rate Blood Pressure 118/73 Blood Pressure 118/73 [Right] O2 Sat by Pulse 100 100 Oximetry ED Medical Decision Making - Lab Data Result diagrams: 05/22/19 12:30 05/22/19 12:30 Laboratory Tests 05/22/19 05/22/19 05/22/19 12:30 12:30 12:30 WBC 6.2 RBC 3.86 Hgb 11.2 Hct 34.4 MCV 89 MCH 29 MCHC 33 RDW 12.9 L Plt Count 279 Lymph % (Auto) 32.5 [place] % (Auto) 5.9 Eos % (Auto) 2.5 Baso % (Auto) 0.6 Lymph # 2.0 [place] # 0.4 Eos # 0.2 Baso # 0.0 Seg Neutrophils % 58.5 Seg Neutrophils # 3.6 Sodium 141 Potassium 4.3 Chloride 106.0 Carbon Dioxide 21 L Anion Gap 18 BUN 23 H Creatinine 1.0 Estimated GFR > 60 BUN/Creatinine Ratio 23 Glucose 249 H Calcium 9.4 Total Bilirubin < 0.20 AST 13 ALT 10 Alkaline Phosphatase 94 Total Protein 6.8 Albumin 4.0 Albumin/Globulin Ratio 1.4 Urine Color Urine Turbidity Urine pH Ur Specific [place] Urine Protein Urine Glucose (UA) Urine Ketones Urine Blood Urine Nitrite Urine Bilirubin Urine Urobilinogen Ur Leukocyte Esterase Urine WBC (Auto) Urine RBC (Auto) U Epithel Cells (Auto) Urine Bacteria (Auto) Ur Renal Epithelial Cell Urine Mucus Salicylates < 0.3 L Urine Opiates Screen Urine Methadone Screen Acetaminophen Ur Barbiturates Screen Ur Phencyclidine Scrn Ur Amphetamines Screen U Benzodiazepines Scrn Urine Cocaine Screen U Marijuana (THC) Screen Drugs of Abuse Note Plasma/Serum Alcohol 05/22/19 05/22/19 05/22/19 12:30 12:30 16:19 WBC RBC Hgb Hct MCV MCH MCHC RDW Plt Count Lymph % (Auto) [place] % (Auto) Eos % (Auto) Baso % (Auto) Lymph # [place] # Eos # Baso # Seg Neutrophils % Seg Neutrophils # Sodium Potassium Chloride Carbon Dioxide Anion Gap BUN Creatinine Estimated GFR BUN/Creatinine Ratio Glucose Calcium Total Bilirubin AST ALT Alkaline Phosphatase Total Protein Albumin Albumin/Globulin Ratio Urine Color Yellow Urine Turbidity Slightly-cloudy Urine pH 5.0 Ur Specific [place] 1.021 Urine Protein <15 mg/dl Urine Glucose (UA) Neg Urine Ketones Neg Urine Blood Neg Urine Nitrite Neg Urine Bilirubin Neg Urine Urobilinogen < 2.0 Ur Leukocyte Esterase Lg Urine WBC (Auto) 46.0 H Urine RBC (Auto) 3.0 U Epithel Cells (Auto) 4.0 Urine Bacteria (Auto) 1+ Ur Renal Epithelial Cell <1 Urine Mucus Few Salicylates Urine Opiates Screen Urine Methadone Screen Acetaminophen < 5.0 L Ur Barbiturates Screen Ur Phencyclidine Scrn Ur Amphetamines Screen U Benzodiazepines Scrn Urine Cocaine Screen U Marijuana (THC) Screen Drugs of Abuse Note Plasma/Serum Alcohol < 0.01 05/22/19 16:19 WBC RBC Hgb Hct MCV MCH MCHC RDW Plt Count Lymph % (Auto) [place] % (Auto) Eos % (Auto) Baso % (Auto) Lymph # [place] # Eos # Baso # Seg Neutrophils % Seg Neutrophils # Sodium Potassium Chloride Carbon Dioxide Anion Gap BUN Creatinine Estimated GFR BUN/Creatinine Ratio Glucose Calcium Total Bilirubin AST ALT Alkaline Phosphatase Total Protein Albumin Albumin/Globulin Ratio Urine Color Urine Turbidity Urine pH Ur Specific [place] Urine Protein Urine Glucose (UA) Urine Ketones Urine Blood Urine Nitrite Urine Bilirubin Urine Urobilinogen Ur Leukocyte Esterase Urine WBC (Auto) Urine RBC (Auto) U Epithel Cells (Auto) Urine Bacteria (Auto) Ur Renal Epithelial Cell Urine Mucus Salicylates Urine Opiates Screen Presumptive negative Urine Methadone Screen Presumptive negative Acetaminophen Ur Barbiturates Screen Presumptive negative Ur Phencyclidine Scrn Presumptive negative Ur Amphetamines Screen Presumptive negative U Benzodiazepines Scrn Presumptive negative Urine Cocaine Screen Presumptive negative U Marijuana (THC) Screen Presumptive negative Drugs of Abuse Note Disclamer Plasma/Serum Alcohol - Differential Diagnosis schizophrenia Critical care attestation.: If time is entered above; I have spent that time in minutes in the direct care of this critically ill patient, excluding procedure time. ED Disposition Clinical Impression: Schizophrenia, UTI (urinary tract infection) Disposition: DC-01 TO HOME OR SELFCARE Is pt being admited?: No Does the pt Need Aspirin: No Condition: Stable Referrals: MADELIN GLORIA MD [Primary Care Provider] - 3-5 Days
[2019-05-22] MEDS: levoFLOXacin 250 MG TAB PO SCH (21:00)
[2019-05-24] MEDS: levoFLOXacin 250 MG TAB PO SCH ×2 (00:10→22:19)
[2019-05-25] MEDS: levoFLOXacin 250 MG TAB PO SCH (21:42)
[2019-05-26 14:52] VITALS: BP 130/54
== END 2019-05-26 16:30 | disposition home or self-care (01) ==
LOC: EEVIPCON 11:03 → ED 11:03
DX: N39.0 Urinary tract infection, site not specified (principal); F25.0 Schizoaffective disorder, bipolar type; F03.90 Unspecified dementia, unspecified severity, without behavioral disturbance, psychotic disturbance, mood disturbance, and anxiety; F17.200 Nicotine dependence, unspecified, uncomplicated; F10.10 Alcohol abuse, uncomplicated; Z79.899 Other long term (current) drug therapy; Z88.5 Allergy status to narcotic agent
CPT/HCPCS: 36415; 80053; 80307; 80320; 81001; 85025; 87086; G0480